=== PATIENT | male | born 1945 | race Caucasian/White ===

== ENCOUNTER → 2020-07-15 11:07 | Outpatient (CLI) | payer MEDICARE, OTHER, SELFPAY ==
[2020-07-16 14:07] LABS: Fecal Immunochemical Test Positive (Negative)
== END ==
PROVIDERS: PCP Student in an Organized Health Care Education/Training Program; Referring Provider Student in an Organized Health Care Education/Training Program; Visit Provider Student in an Organized Health Care Education/Training Program
DX: Z12.11 Encounter for screening for malignant neoplasm of colon (principal)
CPT/HCPCS: 82274

== ENCOUNTER → 2020-08-26 09:51 | Outpatient (CLI) | payer MEDICARE, OTHER, SELFPAY ==
[2020-08-26 10:58] LABS: COVID19 -Nasal RAPID Negative (Negative)
== END ==
PROVIDERS: PCP Student in an Organized Health Care Education/Training Program; Visit Provider Surgery
DX: Z20.822 Contact with and (suspected) exposure to COVID-19 (principal); Z01.812 Encounter for preprocedural laboratory examination
CPT/HCPCS: 87635; C9803

== ENCOUNTER 2020-08-27 07:18 | Day surgery (SDC) | payer MEDICARE, OTHER, SELFPAY ==
[2020-08-26 09:40] VITALS: BP 129/66; PULSE 67; RESP 12; O2SAT 95
--- NOTE | 2020-08-27 | PATH_ITS ---
[facility] Accession Number: [id number] . 01 Material submitted: . PART A: duodenum - DUODENUM BIOPSY PART B: gastrointestinal site - STOMACH BIOPSY PART C: esophagus - DISTAL ESOPHAGUS PART D: cecum - BIOPSY OF LARGE CECAL POLYP PART E: body - POLYP AT 70 CM PART F: body - POLYP AT 50 CM PART G: body - POLYP AT 25 CM PART H: body - POLYP AT 15 CM . 02 Diagnosis: A. Duodenum, Biopsy: Duodenal mucosa with no diagnostic abnormality. Negative for active inflammation, features of sprue, dysplasia, or malignancy. . B. Stomach, Biopsy: Antral mucosa with no diagnostic abnormality. Negative for Helicobacter by immunohistochemistry. Negative for intestinal metaplasia. Negative for dysplasia and malignancy. . C. Distal Esophagus, Biopsy: Squamous mucosa with no diagnostic abnormality. Intraepithelial eosinophils are not increased. Negative for dysplasia and malignancy. . D. Cecum, Large Polyp, Biopsy: Tubular adenoma. . E. Colon, Polyp at 70 cm, Biopsy: Tubular adenoma. . F. Colon, Polyp at 50 cm, Biopsy: Tubular adenoma. . G. Colon, Polyp at 25 cm, Biopsy: Tubular adenoma. . H. Colon, Polyp at 15 cm, Biopsy: Tubular adenoma. [facility] 09/03/2020 1508 Local . 02 Electronically signed: . Kimberlyn Henlye MD, Pathologist NPI- [id number] . 01 Gross description: . Part A: DUODENUM BIOPSY: Received in formalin is 1 fragment(s) of verduzco, soft tissue measuring 0.3 x 0.2 x 0.2 cm submitted entirely in 1 cassette(s) Part B: STOMACH BIOPSY: Received in formalin is 1 fragment(s) of verduzco, soft tissue measuring 0.2 x 0.2 x 0.2 cm submitted entirely in 1 cassette(s) Part C: DISTAL ESOPHAGUS: Received in formalin is 1 fragment(s) of verduzco, soft tissue measuring 0.1 x 0.1 x 0.1 cm submitted entirely in 1 cassette(s) Part D: BIOPSY OF LARGE CECAL POLYP: Received in formalin are 3 fragment(s) of verduzco, soft tissue measuring 0.1 x 0.1 x 0.1 cm to 0.3 x 0.3 x 0.3 cm submitted entirely in 1 cassette(s) Part E: POLYP AT 70 CM: Received in formalin are multiple fragment(s) of verduzco, soft tissue measuring 0.1 x 0.1 x 0.1 cm to 0.3 x 0.2 x 0.2 cm submitted entirely in 1 cassette(s) Part F: POLYP AT 50 CM: Received in formalin is 1 fragment(s) of verduzco, soft tissue measuring 0.2 x 0.2 x 0.2 cm submitted entirely in 1 cassette(s) Part G: POLYP AT 25 CM: Received in formalin are 2 fragment(s) of verduzco, soft tissue measuring 0.3 x 0.2 x 0.2 cm to 0.5 x 0.5 x 0.4 cm submitted entirely in 1 cassette(s) Part H: POLYP AT 15 CM: Received in formalin is 1 fragment(s) of verduzco, soft tissue measuring 0.3 x 0.3 x 0.3 cm submitted entirely in 1 cassette(s) /GEOVANNI 08/30/20203 Local . 02 Microscopic: . B. An immunohistochemical stain was performed to evaluate for Helicobacter organisms and is negative. The control stain showed appropriate reactivity. . * This test was developed and its performance characteristics determined by [employer]. It has not been cleared or approved by the U.S. Food and Drug Administration. The FDA has determined that such clearance or approval is not necessary. This test is used for clinical purposes. It should not be regarded as investigational or for research. . 02 Pathologist provided ICD-10: D12.0, D12.6 . 02 CPT . 073075, 526619, 760783, 654992, 537806, 167352, 828545, 969604, [id number] Performed at: 01 [facility] [address] [place] [address] [address], [place], [place] [id number] MD Naveed Reed MD Phone: [phone] Performed at: 02 [facility] [address] [place] [id number] MD Kimberlyn Henley MD Phone: [phone]
[2020-08-27] MEDS: SODIUM CHLORIDE 0.9% 1,000 ML 200 ML IV (07:50)
[2020-08-27 07:57] VITALS: BP 137/86; PULSE 74; RESP 16; TEMP 35.8; O2SAT 97; BMI 29.3
--- NOTE | 2020-08-27 08:20 | P.OP.ENDO_ITS ---
Operative Date/Time/Diagnoses Date of procedure: 08/27/20 Time of procedure: 08:20 Pre-op diagnosis: positive fit test, epigastric pain and bloating, never had colonosopy Post-op diagnosis: other (mild endoscopic duodenitis and gastritis; ) Procedure & Clinicians Study performed: EGD Standard forceps biopsies of duodenum, stomach, distal esophagus Procedural sedation performed by the endoscopist Colonoscopy Cold forceps biopsy of a large cecal polyp Cold forceps polypectomy of multiple polyps at 70 cm Cold forceps polypectomy of multiple polyps at 50 cm Hot snare polypectomy at 25 cm Hot snare polypectomy at 15 cm Same procedure as scheduled: Yes Indications: positive fit test, epigastric pain, never had an EGD or colonoscopy Surgeon: Jazmin Broussard Procedure Notes SCOAP/Timeout: Performed Procedure in detail: The patient was brought to the room and placed in left lateral decubitus position with all bony prominences padded. A bite block was positioned in the patient's mouth to protect the lips, teeth, and tongue for the procedure. A time-out was performed and then the patient was given procedural sedation starting with 4 mg of Versed and 100 mcg of fentanyl. Vitals were monitored throughout the procedure and remained stable. Once adequately sedated, the procedure was begun. The lubricated gastroscope was passed through the bite block and across the tongue and into the esophagus without incident. A tubular view of the esophagus was maintained as the scope was advanced through the esophagus and into the stomach. The scope was advanced through the stomach and to the pylorus. The scope was gently popped through the pylorus and into the duodenal bulb. The scope was flexed and advanced into the second and third portions of the duodenum. The duodenum and duodenal bulb appeared fairly normal with mild endoscopic duodenitis. The scope was withdrawn into the stomach. The stomach appeared fairly normal with mild endoscopic gastritis. The scope was retroflexed and the gastric cardia was examined. The hiatus appeared anil, with no gaping around the scope. The scope was then straightened, and withdrawn into the esophagus. The Z-line appeared normal, at 40 cm, with no mucosal breaks. Crural pinch was at the same level. The distal esophagus appeared normal. Standard forceps biopsy were taken of the duodenum, stomach, distal esophagus The scope was then withdrawn through the esophagus with a tubular view. The scope was then withdrawn from the patient and attention was then turned to the colonoscopy portion of the procedure. A rectal exam was performed revealing no abnormalities. The colonoscope was then introduced to the rectum and advanced to the cecum in the usual fashion. The cecum was identified by the appendiceal orifice, the mucosal tri-fold, and the ileocecal valve. The scope was then retracted while rotating side to side and examining each mucosal fold. There were numerous polyps throughout the colon. There were 2 small flat polyps in the cecum. Just outside the cecum overlying the ileocecal valve was a large 3 cm x 4 cm flat polyp involving the ileocecal valve and to mucosal colonic folds. Biopsies were taken of the large flat polyp. Multiple flat, adenomatous appearing polyps were seen at 70 cm, and were removed with Jumbo forceps. 3 cm x 2 cm in aggregate. Multiple flat, adenomatous appearing polyps were seen at 50 cm and removed with Jumbo forceps. 2 cm x 2 cm in aggregate. A 1 cm pedunculated polyp was seen at 25 cm and removed with hot snare. A 8 mm pedunculated polyp was seen at 15 cm and removed with hot snare. At the conclusion of the procedure retroflexion was performed and small grade 1-2 internal hemorrhoids without stigmata of bleeding were seen. The scope was then withdrawn from the rectum the procedure was concluded. The patient tolerated the procedure well and was transferred to the PACU in stable condition. A total of 10 mg of Versed and 250 mcg of fentanyl used for the entire procedure. Scope withdrawal time: 40 Sedation minutes: 58 Findings: gastritis (Mild) and other findings (Many polyps throughout the colon, a large flat polyp in the cecum overlying the ileocecal valve and to mucosal fold was not removable endoscopically) Specimen(s): other (Biopsies of duodenum, stomach, distal esophagus. Biopsies of large cecal polyp, polypectomy specimens from 70 cm, 50 cm, 25 cm, and 15 cm in the colon) Complications: none Impression: No hiatal hernia, no esophagitis, mild endoscopic duodenitis gastritis. Numerous polyps, 1 very large polyp in the cecum overlying the ileocecal valve and two mucosal folds. Post-procedure Recommendations: Other recommendation (Follow-up in the office next week to discuss pathology results, and need for future endoscopy or surgical int ervention) Follow up: as needed Disposition: PACU
--- NOTE | 2020-08-27 08:20 | PM.PREOP ---
Pre-operative Note COVID-19 COVID-19 status: Negative Result date/Date tested (Pos, Neg/Pending): 08/26/20 Interval Note History & Physical reviewed/Exam performed by Physician: Yes Changes to H&P: No ASA Class (for procedural sedation): II
[2020-08-27] MEDS: LIDOCAINE 4% SOLN 50 ML 20 ML TOP (08:22)
[2020-08-27] MEDS: fentaNYL 250 MCG/5 ML INJ IV (08:46)
[2020-08-27] MEDS: MIDAZOLAM 5 MG/5 ML VIAL IV (08:46)
[2020-08-27 09:35] VITALS: BP 126/71; PULSE 67; RESP 12; TEMP 36.1; O2SAT 96
[2020-08-27 09:46] VITALS: BP 126/79; PULSE 65; RESP 11; O2SAT 95
[2020-08-27 09:54] VITALS: BP 127/80; PULSE 67; RESP 12; O2SAT 95
[2020-08-27 10:11] VITALS: BP 112/81; PULSE 58; RESP 14; TEMP 35.9; O2SAT 94
== END 2020-08-27 10:31 | disposition home or self-care (01) ==
PROVIDERS: PCP Student in an Organized Health Care Education/Training Program; Referring Provider Student in an Organized Health Care Education/Training Program; Visit Provider Surgery
PROC: 0DJ08ZZ Inspection of Upper Intestinal Tract, Via Natural or Artificial Opening Endoscopic (ICD-10-PCS; CPT 43235; principal; 2020-08-27 08:30)
PROC: 0DJD8ZZ Inspection of Lower Intestinal Tract, Via Natural or Artificial Opening Endoscopic (ICD-10-PCS; CPT 45378; 2020-08-27 08:30)
DX: D12.0 Benign neoplasm of cecum (principal); D12.6 Benign neoplasm of colon, unspecified; K29.50 Unspecified chronic gastritis without bleeding; K29.80 Duodenitis without bleeding
CPT/HCPCS: 45385; 45380; 43239; 99152; 99153; J2250; J3010

== ENCOUNTER → 2020-09-01 15:12 | Outpatient (CLI) | payer MEDICARE, OTHER, SELFPAY ==
[2020-09-01 15:59] LABS: Hemoglobin A1C% w Est Avg Glu 5.8 % (4.0-6.0)
[2020-09-05 15:07] LABS: Percent Free Testosterone 2.48 % (1.50-4.20); Testosterone Free 6.81 ng/dL (5.00-21.00); Testosterone Total 274.5 ng/dL (264.0-916.0)
== END ==
PROVIDERS: PCP Student in an Organized Health Care Education/Training Program; Referring Provider Student in an Organized Health Care Education/Training Program; Visit Provider Student in an Organized Health Care Education/Training Program
DX: E29.1 Testicular hypofunction (principal); R73.9 Hyperglycemia, unspecified
CPT/HCPCS: 36415; 83036; 84402; 84403

== ENCOUNTER → 2020-09-17 17:01 | Outpatient (CLI) | payer MEDICARE, OTHER, SELFPAY ==
[2020-09-17 17:39] LABS: Add Manual Diff / Slide Review NO; Basophils Absolute Auto 100 /uL (0-100); Eosinophils Absolute Auto 300 /uL (0-450); Hematocrit 44.6 % (41-53); Hemoglobin 14.8 g/dL (13.5-17.5); Lymphocytes Absolute Auto 1400 /uL (1100-4500); Lymphocytes Percent Auto 19.5 % (25-40); Mean Corpuscular HGB Conc 33.2 % (30-36); Mean Corpuscular Hemoglobin 31.2 PG (26-34); Mean Corpuscular Volume 94.2 fL (80-100); Monocytes Absolute Auto 700 /uL (0-900); Neutrophils Absolute Auto 4700 /uL (1500-7000); Neutrophils Percent Auto 65.5 % (50-75); Platelet Count 231 X10^3/uL (150-400); Red Blood Cell Count 4.74 X10^6/uL (4.5-5.9); Red Cell Distribution Width 14.8 % (11.6-14.8); White Blood Cell Count 7.1 X10^3/uL (4.5-11.0)
[2020-09-17 17:54] LABS: HEMOLYSIS < 15 (0-50)
[2020-09-17 18:01] LABS: Alanine Aminotransferase 23 IU/L (<50); Albumin 4.3 g/dL (3.5-5.0); Albumin Globulin Ratio 1.7 (1.0-2.8); Alkaline Phosphatase 65 U/L (38-126); Aspartate Aminotransferase 31 IU/L (17-59); Bilirubin Total 0.4 mg/dL (0.2-1.3); Blood Urea Nitrogen 15 mg/dL (9-20); Calcium 9.2 mg/dL (8.4-10.2); Carbon Dioxide 33 mmol/L (22-32); Chloride 104 mmol/L (98-107); Creatine Kinase 183 U/L (55-170); Estimated Glomerular Filt Rate > 60.0 mL/min (>60); Globulin 2.5 g/dL (1.7-4.1); Glucose 114 mg/dL (80-110); Potassium 4.1 mmol/L (3.4-5.1); Sodium 139 mmol/L (137-145); Total Protein 6.8 g/dL (6.3-8.2)
[2020-09-17 18:05] LABS: Erythrocyte Sedimentation Rate 3 MM/HR (0-15)
[2020-09-17 18:32] LABS: TSH w/ Reflex to FT4 2.93 uIU/mL (0.47-4.68)
[2020-09-17 18:44] LABS: C-Reactive Protein Quant 0.5 mg/dL (<1.0)
[2020-09-17 19:37] LABS: Vitamin B12 306 pg/mL (239-931)
[2020-09-19 12:22] LABS: CCP Antibodies IgG/IgA 8 units (0-19)
[2020-09-19 17:36] LABS: ANA Screen, IFA Negative (.)
== END ==
PROVIDERS: PCP Student in an Organized Health Care Education/Training Program; Referring Provider Student in an Organized Health Care Education/Training Program; Visit Provider Student in an Organized Health Care Education/Training Program
DX: I48.0 Paroxysmal atrial fibrillation (principal); I40.8 Other acute myocarditis; I10 Essential (primary) hypertension; M35.3 Polymyalgia rheumatica; G62.9 Polyneuropathy, unspecified
CPT/HCPCS: 36415; 80053; 82550; 82607; 84443; 85025; 85651; 86038; 86140; 86200

== ENCOUNTER → 2020-10-04 14:09 | Outpatient (CLI) | payer MEDICARE, OTHER, SELFPAY ==
[2020-10-04 16:52] LABS: COVID19 -Nasal RAPID Negative (Negative)
== END ==
PROVIDERS: PCP Student in an Organized Health Care Education/Training Program; Visit Provider Physician Assistant
DX: Z01.812 Encounter for preprocedural laboratory examination (principal); Z20.822 Contact with and (suspected) exposure to COVID-19
CPT/HCPCS: 87635; C9803

== ENCOUNTER 2020-10-06 12:45 | Day surgery (SDC) | payer MEDICARE, OTHER, SELFPAY ==
--- NOTE | 2020-10-06 | PATH_ITS ---
[facility] Accession Number: [id number] . 01 Material submitted: . ileo-cecal valve - POLYP IC VALVE . 02 Diagnosis: Ileocecal Valve Polyp, Biopsy: Tubulovillous adenoma, fragmented. Negative for high-grade dysplasia or malignancy. [facility] 10/08/2020 0958 Local . 02 Electronically signed: . Lucian Gonsales MD, PhD, Pathologist NPI- [id number] . 01 Gross description: . POLYP IC VALVE: Received in formalin are multiple fragment(s) of verduzco, soft tissue measuring 0.1 x 0.1 x 0.1 cm to 0.9 x 0.7 x 0.6 cm submitted entirely in 1 cassette(s) /GEOVANNI 10/07/2020 193 Local . 02 Pathologist provided ICD-10: D12.0 . 02 CPT . 553523 Performed at: 01 [facility] [address] [facility], [place], [place] [id number] MD Naveed Reed MD Phone: [phone] Performed at: 02 [facility] [address] [place], [place] [id number] MD Kimberlyn Henley MD Phone: [phone]
[2020-10-06 13:17] VITALS: BP 138/94; PULSE 81; RESP 16; TEMP 36.6; O2SAT 97; BMI 29.3
[2020-10-06] MEDS: SODIUM CHLORIDE 0.9% 1,000 ML 100 ML IV (13:28)
--- NOTE | 2020-10-06 14:02 | P.OP.ENDO_ITS ---
Operative Date/Time/Diagnoses Date of procedure: 10/06/20 Pre-op diagnosis: See Procedure & Clinicians Study performed: Colonoscopy Same procedure as scheduled: Yes Indications: Large cecal polyp to be evaluated for possible endoscopic removal Surgeon: Ignacio Morel Procedure Notes Procedure in detail: After informed consent was obtained the patient was placed in left lateral decubitus position. Video colonoscope was introduced the rectum slowly advanced cecum. Preparation was good. On slow withdrawal mucosa was carefully examined. The scope was removed. The patient tolerated procedure well. Blood loss none Complications none Sedation MAC Findings 1. Large, stellate 30 x 40 mm polyp on top of the IC valve. Sequentially, this was injected with a total of 12 cc of saline for left and polyp was removed piecemeal fashion. The remainder of the polyp around the edges was treated with argon plasma distributor cleaner at a setting of 0.8 liters/minute and 30 w. I felt the polyp to be completely treated. 2. Otherwise grossly negative colonoscopy to cecum We will merely await the results of biopsies which I expect to be completely benign though there is a small chance of a small focus of carcinoma hiding there. As routine follow-up we should have repeat colonoscopy in 3 months with APC to clean up any small foci that were not completely treated at the end of the procedure.
[2020-10-06 14:44] VITALS: BP 127/84; PULSE 70; RESP 15; TEMP 36.4; O2SAT 95
[2020-10-06 14:49] VITALS: BP 133/86; PULSE 71; RESP 14; O2SAT 95
[2020-10-06 14:59] VITALS: BP 135/87; PULSE 68; RESP 16; O2SAT 97
[2020-10-06 15:03] VITALS: BP 132/85; PULSE 64; RESP 17; TEMP 36.8; O2SAT 98
== END 2020-10-06 15:53 | disposition home or self-care (01) ==
PROVIDERS: PCP Student in an Organized Health Care Education/Training Program; Referring Provider Internal Medicine Gastroenterology; Visit Provider Internal Medicine Gastroenterology
PROC: 0DJD8ZZ Inspection of Lower Intestinal Tract, Via Natural or Artificial Opening Endoscopic (ICD-10-PCS; CPT 45378; principal; 2020-10-06 14:00)
DX: D12.0 Benign neoplasm of cecum (principal); I48.0 Paroxysmal atrial fibrillation; E78.5 Hyperlipidemia, unspecified
CPT/HCPCS: 45390

== ENCOUNTER → 2020-10-18 13:40 | Outpatient (CLI) | payer MEDICARE, OTHER, SELFPAY ==
--- NOTE | 2020-10-18 13:43 | DI.RAD.S_ITS ---
PROCEDURE: XR CALCANEOUS LT MIN 2V INDICATIONS: heel pain TECHNIQUE: Two views of the calcaneus were acquired. COMPARISON: None. FINDINGS: Bones: No fractures or dislocations. No suspicious bony lesions. Soft tissues: No suspicious calcifications. Achilles tendon appears normal. IMPRESSION: No acute fracture. No osseous lesion. If symptoms and/or clinical suspicion for pathology persist, further assessment with repeat, or advanced imaging (e.g., CT, MRI, or bone scan) may be helpful for further assessment. Dictated by: Dia Fall M.D. on 10/18/2020 at 14:03 Approved by: Dia Fall M.D. on 10/18/2020 at 14:04
== END ==
PROVIDERS: PCP Student in an Organized Health Care Education/Training Program; Referring Provider Physician Assistant; Visit Provider Physician Assistant
DX: M79.672 Pain in left foot (principal)
CPT/HCPCS: 73650

== ENCOUNTER → 2020-10-21 14:50 | Outpatient (CLI) | payer MEDICARE, OTHER, SELFPAY ==
[2020-10-21] MEDS: COVID-19 VACC, Ad26(JANSSEN)/PF 0.5 ML IM (15:04)
== END ==
PROVIDERS: PCP Student in an Organized Health Care Education/Training Program; Visit Provider Internal Medicine
DX: Z23 Encounter for immunization (principal)
CPT/HCPCS: 0031A; 91303

== ENCOUNTER → 2020-11-23 12:40 | Outpatient (CLI) | payer MEDICARE, OTHER, SELFPAY ==
[2020-11-23 14:15] LABS: Hemoglobin A1C% w Est Avg Glu 5.6 % (4.0-6.0)
== END ==
PROVIDERS: PCP Student in an Organized Health Care Education/Training Program; Referring Provider Student in an Organized Health Care Education/Training Program; Visit Provider Student in an Organized Health Care Education/Training Program
DX: R73.03 Prediabetes (principal); M35.3 Polymyalgia rheumatica
CPT/HCPCS: 36415; 83036

== ENCOUNTER → 2021-02-23 09:33 | Outpatient (CLI) | payer MEDICARE, OTHER, SELFPAY ==
[2021-02-23 11:50] LABS: COVID19 -Nasal RAPID Negative (Negative)
== END ==
PROVIDERS: PCP Student in an Organized Health Care Education/Training Program; Referring Provider Physician Assistant; Visit Provider Physician Assistant
DX: Z01.812 Encounter for preprocedural laboratory examination (principal); Z20.822 Contact with and (suspected) exposure to COVID-19
CPT/HCPCS: 87635; C9803

== ENCOUNTER → 2021-06-21 10:25 | Outpatient (CLI) | payer MEDICARE, OTHER, SELFPAY ==
[2021-06-21 12:22] LABS: Hemoglobin A1C% w Est Avg Glu 5.5 % (4.0-6.0)
== END ==
PROVIDERS: PCP Student in an Organized Health Care Education/Training Program; Referring Provider Student in an Organized Health Care Education/Training Program; Visit Provider Student in an Organized Health Care Education/Training Program
DX: R73.9 Hyperglycemia, unspecified (principal); T38.0X5A Adverse effect of glucocorticoids and synthetic analogues, initial encounter
CPT/HCPCS: 36415; 83036

== ENCOUNTER 2022-02-23 06:56 | Emergency (ER) | payer MEDICARE, OTHER, SELFPAY ==
[2022-02-23] VITALS (8 sets, daily range): BP systolic 119–137; BP diastolic 73–79; PULSE 73–102; RESP 20–26; TEMP 36.4; O2SAT 88–94; BMI 31.1
--- NOTE | 2022-02-23 07:37 | DI.RAD.S_ITS ---
PROCEDURE: XR CHEST 2V INDICATIONS: shortness of breath TECHNIQUE: 2 views of the chest were acquired. COMPARISON: None. FINDINGS: Surgical changes and devices: None. Lungs and pleura: Lungs are clear. No pleural effusions or pneumothorax. Mediastinum: Mediastinal contours are normal. Heart size is normal. Bones and chest wall: No suspicious bony abnormalities. Soft tissues appear unremarkable. IMPRESSION: No acute cardiopulmonary abnormality. Dictated by: Ramesh Gayle M.D. on 02/23/2022 at 8:20 Approved by: Ramesh Gayle M.D. on 02/23/2022 at 8:21
[2022-02-23 08:00] LABS: Add Manual Diff / Slide Review NO; Basophils Absolute Auto 0 /uL (0-100); Basophils Percent Auto 0.5 % (0-2); Eosinophils Absolute Auto 0 /uL (0-450); Eosinophils Percent Auto 0.6 % (2-4); Hematocrit 44.1 % (41-53); Hemoglobin 14.9 g/dL (13.5-17.5); Lymphocytes Absolute Auto 500 /uL (1100-4500); Lymphocytes Percent Auto 7.6 % (25-40); Mean Corpuscular HGB Conc 33.8 % (30-36); Mean Corpuscular Hemoglobin 31.5 PG (26-34); Mean Corpuscular Volume 93.1 fL (80-100); Monocytes Absolute Auto 800 /uL (0-900); Monocytes Percent Auto 11.3 % (3-14); Neutrophils Absolute Auto 5300 /uL (1500-7000); Platelet Count 131 X10^3/uL (150-400); Red Blood Cell Count 4.74 X10^6/uL (4.5-5.9); Red Cell Distribution Width 14.9 % (11.6-14.8); White Blood Cell Count 6.7 X10^3/uL (4.5-11.0)
[2022-02-23 08:12] LABS: Lactate (Lactic Acid) 1.2 mmol/L (0.7-2.1)
[2022-02-23 08:13] LABS: Alanine Aminotransferase 27 IU/L (<50); Albumin 4.3 g/dL (3.5-5.0); Albumin Globulin Ratio 1.5 (1.0-2.8); Alkaline Phosphatase 62 U/L (38-126); Aspartate Aminotransferase 34 IU/L (17-59); BUN Creatinine Ratio 12.2 (6-22); Bilirubin Total 0.5 mg/dL (0.2-1.3); Blood Urea Nitrogen 12 mg/dL (9-20); Calcium 8.5 mg/dL (8.4-10.2); Carbon Dioxide 27 mmol/L (22-32); Chloride 101 mmol/L (98-107); Estimated Glomerular Filt Rate > 60 mL/min (>60); Globulin 2.8 g/dL (1.7-4.1); Glucose 125 mg/dL (80-110); HEMOLYSIS < 15 (0-50); Potassium 3.8 mmol/L (3.4-5.1); Sodium 136 mmol/L (137-145); Total Protein 7.1 g/dL (6.3-8.2)
--- NOTE | 2022-02-23 08:42 | ED_ITS ---
HPI - SOB/Dyspnea General Chief Complaint: Shortness of Breath/Dyspnea Stated Complaint: COVID + LOTS OF FLEM, SWOLLEN THROAT, BACK PAIN Time Seen by Provider: 02/23/22 07:10 Source: patient Mode of arrival: Ambulatory Limitations: no limitations History of Present Illness HPI Narrative: 76-year-old male former smoker with history of hypertension and hyperlipidemia presents with various upper respiratory symptoms including nasal congestion, phlegm production sore throat and fatigue for about the past 3-4 days. He denies any fever or chills nor GI symptoms such as nausea, vomiting or diarrhea. Denies any significant shortness of breath but does state he feels a bit fatigued when he walks. He denies shortness of breath when lying flat, denies any weight gain or lower extremity pain, swelling redness Related Data Home Medications Medication Instructions Recorded Confirmed cholecalciferol (vitamin D3) 10 10 mcg PO DAILY 07/30/20 01/06/21 mcg (400 unit) capsule aspirin 81 mg tablet,delayed 81 mg PO DAILY 01/06/21 01/06/21 release Previous Rx's Medication Instructions Recorded propafenone 150 mg tablet 150 mg PO TID #270 tabs 09/16/20 metoprolol succinate 25 mg 25 mg PO DAILY #90 tabs 12/26/21 tablet,extended release 24 hr testosterone 50 mg/5 gram (1 %) 100 mg transdermal DAILY #300 grams 12/26/21 transdermal gel rosuvastatin 5 mg tablet (Crestor) 5 mg PO DAILY #90 tabs 01/16/22 Allergies Allergy/AdvReac Type Severity Reaction Status Date / Time No Known Drug Allergies Allergy Verified 01/16/22 10:42 Review of Systems Review of Systems Narrative: GENERAL: See HPI. HEENT: See HPI RESPIRATORY: See HPI CARDIOVASCULAR: See HPI GASTROINTESTINAL: Denies nausea, vomiting, abdominal pain, diarrhea, constipation, melena. : Denies dysuria, frequency, incontinence, hematuria, urinary retention. MUSCULOSKELETAL: denies weakness, joint pain, or bony pain SKIN: Denies rash, skin lesions, or other NEUROLOGIC: Denies weakness, headache, numbness, change in speech, confusion, seizures, incoordination. PSYCHIATRIC: No concerning psychosocial issues. 12 point review of systems is negative except for those stated above Patient History Medical History Carpal tunnel syndrome Chicken pox Colon polyps Fall from ladder GI bleed Kidney stones Osteoarthritis Polymyalgia rheumatica Presbycusis, right ear Surgical History Anesthesia History of toe surgery History of total right knee replacement (~2011) Rectal abscess Family History Mother Hypertension Breast cancer Uterine cancer Social History marital status: household members: spouse occupational status: previously employed Smoking Status: Former smoker alcohol intake: current substance use type: does not use Smoking Status: Former smoker alcohol intake frequency: 0-2 drinks per day Substance Use Type: does not use Exam Narrative Exam Narrative: GENERAL: [76] year old patient appears stated age. Well-developed patient, in mild distress. HEAD: Atraumatic. Normocephalic. EYES: Pupils equal round and reactive. Extraocular motions intact. No scleral icterus. No injection or drainage. ENT: Nose without bleeding, purulent drainage. Throat with minimal erythema, no significant swelling or exudate, airway patent, clear postnasal drip NECK: Trachea midline. Non tender CARDIOVASCULAR: Regular rate and rhythm without murmurs, gallops, or rubs. RESPIRATORY: Clear to auscultation. Breath sounds equal bilaterally. No wheezes, rales, or rhonchi. No significant work of breathing, use of accessory muscles or hypoxemia GASTROINTESTINAL: Abdomen soft, non-tender, nondistended. EXTREMITIES: No edema or joint tenderness. BACK: Nontender without deformity or crepitance. No flank tenderness. NEURO: AOx3. SKIN: No rash or erythema of visible areas Initial Vital Signs Initial Vital Signs: Vital Signs Temperature 97.5 F L 02/23/22 07:28 Pulse Rate 76 02/23/22 07:28 Respiratory Rate 20 02/23/22 07:28 Blood Pressure 120/77 02/23/22 07:28 Pulse Oximetry 90 L 02/23/22 07:28 Oxygen Delivery Method 02/23/22 07:28 Course Orders Ordered: ED Orders 02/23/22 07:37 XR chest 2V Stat EKG-12 Lead Stat Measure peak expiratory flow ONCE RT Consult Eval and Treat Now 02/23/22 07:56 Complete Blood Count AUTO DIFF Stat Comprehensive Metabolic Panel Stat Lactate (Lactic Acid) Stat 02/23/22 09:07 BNP [NT-proBNP (BNP-Adult 18+)] Stat 02/23/22 10:14 Throat Culture Stat Vital Signs Vital signs: Vital Signs - 8 hr 02/23/22 07:28 02/23/22 08:37 02/23/22 08:38 Temperature 97.5 F L Pulse Rate 76 73 73 Respiratory Rate 20 Blood Pressure 120/77 Pulse Oximetry 90 L 88 L 91 Oxygen Delivery Method Room Air 02/23/22 08:38 02/23/22 09:00 02/23/22 09:01 Temperature Pulse Rate 102 H 74 Respiratory Rate 26 H 22 Blood Pressure 133/79 Pulse Oximetry 93 93 Oxygen Delivery Method 02/23/22 09:01 02/23/22 09:30 02/23/22 09:30 Temperature Pulse Rate 75 Respiratory Rate 21 Blood Pressure 119/75 130/73 Pulse Oximetry 91 Oxygen Delivery Method 02/23/22 10:00 02/23/22 10:00 Temperature Pulse Rate 75 Respiratory Rate 24 Blood Pressure 137/76 Pulse Oximetry 94 Oxygen Delivery Method MDM - SOB/Dyspnea Lab Data Result diagrams: 02/23/22 07:56 02/23/22 07:56 Labs: Lab Results 02/23/22 02/23/22 02/23/22 Range/Units 07:56 07:56 07:56 WBC 6.7 (4.5-11.0) X10^3/uL RBC 4.74 (4.5-5.9) X10^6/uL Hgb 14.9 (13.5-17.5) g/dL Hct 44.1 (41-53) % MCV 93.1 (80-100) fL MCH 31.5 (26-34) PG MCHC 33.8 (30-36) % RDW 14.9 H (11.6-14.8) % Plt Count 131 L (150-400) X10^3/uL Neut % (Auto) 80.0 H (50-75) % Lymph % (Auto) 7.6 L (25-40) % [place] % (Auto) 11.3 (3-14) % Eos % (Auto) 0.6 L (2-4) % Baso % (Auto) 0.5 (0-2) % Neut # (Auto) 5300 (5934-6083) /uL Lymph # (Auto) 500 L (4636-1762) /uL [place] # (Auto) 800 (0-900) /uL Eos # (Auto) 0 (0-450) /uL Baso # (Auto) 0 (0-100) /uL Sodium 136 L (137-145) mmol/L Potassium 3.8 (3.4-5.1) mmol/L Chloride 101 (98-107) mmol/L Carbon Dioxide 27 (22-32) mmol/L BUN 12 (9-20) mg/dL Creatinine 0.98 (0.66-1.25) mg/dL Estimated GFR > 60 (>60) mL/min BUN/Creatinine Ratio 12.2 (6-22) Glucose 125 H (80-110) mg/dL Lactate 1.2 (0.7-2.1) mmol/L Calcium 8.5 (8.4-10.2) mg/dL Total Bilirubin 0.5 (0.2-1.3) mg/dL AST 34 (17-59) IU/L ALT 27 (<50) IU/L Alkaline Phosphatase 62 (38-126) U/L NT-Pro-B Natriuret Pep (<450) pg/mL Total Protein 7.1 (6.3-8.2) g/dL Albumin 4.3 (3.5-5.0) g/dL Globulin 2.8 (1.7-4.1) g/dL Albumin/Globulin Ratio 1.5 (1.0-2.8) 02/23/22 Range/Units 09:07 WBC (4.5-11.0) X10^3/uL RBC (4.5-5.9) X10^6/uL Hgb (13.5-17.5) g/dL Hct (41-53) % MCV (80-100) fL MCH (26-34) PG MCHC (30-36) % RDW (11.6-14.8) % Plt Count (150-400) X10^3/uL Neut % (Auto) (50-75) % Lymph % (Auto) (25-40) % [place] % (Auto) (3-14) % Eos % (Auto) (2-4) % Baso % (Auto) (0-2) % Neut # (Auto) (0026-1992) /uL Lymph # (Auto) (3279-9676) /uL [place] # (Auto) (0-900) /uL Eos # (Auto) (0-450) /uL Baso # (Auto) (0-100) /uL Sodium (137-145) mmol/L Potassium (3.4-5.1) mmol/L Chloride (98-107) mmol/L Carbon Dioxide (22-32) mmol/L BUN (9-20) mg/dL Creatinine (0.66-1.25) mg/dL Estimated GFR (>60) mL/min BUN/Creatinine Ratio (6-22) Glucose (80-110) mg/dL Lactate (0.7-2.1) mmol/L Calcium (8.4-10.2) mg/dL Total Bilirubin (0.2-1.3) mg/dL AST (17-59) IU/L ALT (<50) IU/L Alkaline Phosphatase (38-126) U/L NT-Pro-B Natriuret Pep 196 (<450) pg/mL Total Protein (6.3-8.2) g/dL Albumin (3.5-5.0) g/dL Globulin (1.7-4.1) g/dL Albumin/Globulin Ratio (1.0-2.8) Point of Care Testing Rapid Strep A Negative Imaging Data Chest x-ray: Radiologist's Impression: [address] [address] XRay Report Signed Patient: Yogi Perdue MR#: [id number] : 1945 Acct:[id number] Age/Sex: 76 / M Date of Service: 02/23/22 Loc: ED Accession Number: [id number] ?? Procedure: XR chest 2V Ordering Provider: Shashi Zamora D.O. PROCEDURE:? XR CHEST 2V ? INDICATIONS:? shortness of breath ? TECHNIQUE:? 2 views of the chest were acquired.? ? COMPARISON:? None. ? FINDINGS:? ? Surgical changes and devices:? None.? ? Lungs and pleura:? Lungs are clear.? No pleural effusions or pneumothorax.? ? Mediastinum:? Mediastinal contours are normal.? Heart size is normal.? ? Bones and chest wall:? No suspicious bony abnormalities.? Soft tissues appear unremarkable.? ? IMPRESSION:? No acute cardiopulmonary abnormality. ? ? ? Dictated by: Ramesh Gayle M.D. on 02/23/2022 at 8:20 ? ? Approved by: Ramesh Gayle M.D. on 02/23/2022 at 8:21 ? MDM Narrative Medical decision making narrative: Patient has mild symptoms, no signs of sepsis, clear chest x-ray and no significant work of breathing, need for supplemental oxygen, use of accessory muscles or hypoxemia. His renal function is appropriate, stands the chance to worsen clinically and would like a prescription for Paxil COVID. His medicat ions have been reviewed and his ongoing use of propafenone would make packs COVID an unreasonable choice. Patient has no indication for admission for transfer, there is no evidence of any other, alternative diagnosis that would respond to a specific treatment. Return precautions given and questions answered to his apparent satisfaction Discharge Plan Departure Patient Disposition: Home Clinical Impression: COVID-19 Instructions: DI for COVID-19 (Suspected or Confirmed ) Activity Restrictions/Additional Instructions: *You have been diagnosed with [ COVID-19] *What to do: ?* per recommendations from the CDC and the [facility] Department of Health ?* stay home except to get medical care. ?Restrict activities outside your home, except for getting medical care. ?Do not go to work, school, or public areas. ?Avoid using public transportation, ride sharing, or taxis. ?* separate yourself from other people in your home. ?* call ahead before visiting your doctor ?* Wear a facemask ?* Cover your coughs and sneezes ?* Clean your hands often ?* Avoid sharing household items ?* Clean all high-touch services every day ?* Monitor your symptoms and seek prompt medical attention if your illness is worsening, particularly with difficulty in breathing. You may discontinue your isolation when: ?1. You have been fever-free for at least 24 hours without the use of fever reducing medication, AND ?2. Your symptoms are getting better, AND ?3. At least 5 days have passed since symptoms first appeared ?4. If you have fever, continue to stay home until fever resolves Individuals with laboratory confirmed COVID-19 who have not had any symptoms may discontinue home isolation when at least 5 days have passed since the date of their first COVID-19 diagnostic test and have had no subsequent illness You should notifiy any friends and family that have been in close contact *If up to date on COVID Vaccines, then they do not need to quarantine unless symptoms develop. Get tested on day 5 (or sooner if symptoms develop). Take precautions and watch for symptoms until day 10 *If NOT up to date on COVID Vaccines, then CDC recommends quarantine for at least 5 full days. Wear a well fitted mask at home if you must be around others. If they ?develop symptoms they should get tested. If they remain asymptomatic they should get tested on day 5. They should take precautions and monitor for symptoms until day 10. Prescriptions: No Action propafenone 150 mg tablet 150 mg PO TID Qty: 270 2RF Rx Instructions: space evenly during waking hours metoprolol succinate 25 mg tablet extended release 24 hr 25 mg PO DAILY Qty: 90 0RF Rx Instructions: PT DUE FOR APPT W/PCP PRIOR TO END OF RX/FUTURE FILLS. PLEASE CALL TO SCHEDULE APPT. THANKS 12/26/21 testosterone 50 mg/5 gram (1 %) gel 100 mg transdermal DAILY Qty: 300 0RF aspirin 81 mg tablet,delayed release (DR/EC) 81 mg PO DAILY rosuvastatin [Crestor] 5 mg tablet 5 mg PO DAILY Qty: 90 3RF cholecalciferol (vitamin D3) 10 mcg (400 unit) capsule 10 mcg PO DAILY Referrals: Tye Swartz MD [Primary Care Provider] -
[2022-02-23 09:37] LABS: NT-proBNP (BNP-Adult 18+) 196 pg/mL (<450)
== END 2022-02-23 11:00 | disposition home or self-care (01) ==
PROVIDERS: Emergency Provider Emergency Medicine; PCP Student in an Organized Health Care Education/Training Program
DX: U07.1 COVID-19 (principal); R06.02 Shortness of breath
CPT/HCPCS: 36415; 71046; 80053; 83605; 83880; 85025; 87070; 87880; 93005; 93010; 99284

== ENCOUNTER → 2022-06-30 09:36 | Outpatient (CLI) | payer MEDICARE, OTHER, SELFPAY ==
[2022-06-30 10:59] LABS: Hemoglobin A1C% w Est Avg Glu 5.8 % (4.0-6.0)
[2022-06-30 11:32] LABS: BUN Creatinine Ratio 20.4 (6-22); Blood Urea Nitrogen 20 mg/dL (9-20); Calcium 9.4 mg/dL (8.4-10.2); Carbon Dioxide 29 mmol/L (22-32); Chloride 103 mmol/L (98-107); Cholesterol 162 mg/dL (140-199); Estimated Glomerular Filt Rate > 60 mL/min (>60); Glucose 111 mg/dL (80-110); HDL Cholesterol 61 mg/dL (40-60); HEMOLYSIS < 15 (0-50); LDL Cholesterol Calculated 85 mg/dL (<100); Potassium 4.4 mmol/L (3.4-5.1); Sodium 141 mmol/L (137-145); Triglycerides 80 mg/dL (35-150)
[2022-06-30 11:57] LABS: Testosterone 309 ng/dL (71.8-623)
[2022-06-30 15:09] LABS: Creatinine Urine Random 166.2 mg/dL
[2022-06-30 15:14] LABS: Microalbumi Creatinin Ratio Ur 13.2 ug/mg CR (<30); Microalbumin Urine Random 2.2 mg/dL (0-1.6)
== END ==
PROVIDERS: PCP Student in an Organized Health Care Education/Training Program; Referring Provider Student in an Organized Health Care Education/Training Program; Visit Provider Student in an Organized Health Care Education/Training Program
DX: R73.03 Prediabetes (principal); E78.2 Mixed hyperlipidemia; E29.1 Testicular hypofunction
CPT/HCPCS: 36415; 80048; 80061; 82043; 82570; 83036; 84403

== ENCOUNTER → 2023-06-15 08:51 | Outpatient (CLI) | payer MEDICARE, OTHER, SELFPAY ==
[2023-06-22 20:35] LABS: Percent Free Testosterone 2.62 % (1.50-4.20); Testosterone Free 12.77 ng/dL (5.00-21.00); Testosterone Total 487.3 ng/dL (264.0-916.0)
== END ==
PROVIDERS: PCP Family Medicine; Referring Provider Family Medicine; Visit Provider Family Medicine
DX: E29.1 Testicular hypofunction (principal)
CPT/HCPCS: 36415; 84402; 84403

== ENCOUNTER 2023-10-25 15:17 | Emergency (ER) | payer MEDICARE, OTHER, SELFPAY ==
[2023-10-25 15:33] VITALS: BP 137/68; PULSE 66; RESP 17; TEMP 36.6; O2SAT 97; BMI 30.2
--- NOTE | 2023-10-25 15:35 | DI.RAD.S_ITS ---
PROCEDURE: XR KNEE LT 3V INDICATIONS: swelling after fall TECHNIQUE: 3 views of the knee were acquired. COMPARISON: None. FINDINGS: Bones: No fractures or dislocations. No suspicious bony lesions. Well-aligned, intact arthroplasty without hardware complication. Well corticated dystrophic calcification above the patella, likely within the quadriceps tendon. Soft tissues: Moderate joint effusion. No suspicious soft tissue calcifications. IMPRESSION: Moderate knee joint effusion, without displaced fracture. Dictated by: Uriel Gautam M.D. on 10/25/2023 at 16:30 Approved by: Uriel Gautam M.D. on 10/25/2023 at 16:31
--- NOTE | 2023-10-25 15:35 | ED.LOWEXIN ---
HPI - Extremity Injury (Lower) General Chief Complaint: Extremity Injury, Lower Stated Complaint: knee pain, post knee sx Time Seen by Provider: 10/25/23 15:28 Source: patient Mode of arrival: Wheelchair History of Present Illness HPI Narrative: 78-year-old male. Underwent a left total knee replacement in March of last year. Things have been going well. Today he states he fell and landed directly on the left knee and had swelling to the outside of the knee very quickly afterwards. He was concerned about a patella dislocation. No other injuries from the event. Related Data Home Medications Medication Instructions Recorded Confirmed cholecalciferol (vitamin D3) 10 10 mcg PO DAILY 07/30/20 06/15/23 mcg (400 unit) capsule aspirin 81 mg tablet,delayed 81 mg PO DAILY 01/06/21 10/25/23 release Previous Rx's Medication Instructions Recorded rosuvastatin 5 mg tablet (Crestor) 5 mg PO DAILY #90 tabs 03/29/23 propafenone 150 mg tablet 150 mg PO Q8H #180 tabs 07/31/23 metoprolol succinate 25 mg 25 mg PO DAILY #90 tabs 09/05/23 tablet,extended release 24 hr testosterone 1 % (50 mg/5 gram) 2 packet topical DAILY #300 grams 09/27/23 transdermal gel packet Allergies Allergy/AdvReac Type Severity Reaction Status Date / Time No Known Drug Allergies Allergy Verified 10/25/23 15:35 Review of Systems Constitutional Constitutional: Reports system reviewed and no additional complaints, except as documented Musculoskeletal Musculoskeletal: Reports system reviewed and no additional complaints, except as documented Integumentary/Breasts Skin/Breast: Reports system reviewed and no additional complaints, except as documented Neurologic Neurologic: Reports system reviewed and no additional complaints, except as documented Hematologic/Lymphatic On Anticoagulants: No Patient History Medical History Chronic pain of left knee Presbycusis, right ear Fall from ladder Colon polyps GI bleed Osteoarthritis Polymyalgia rheumatica Carpal tunnel syndrome Chicken pox Kidney stones Surgical History Anesthesia Rectal abscess History of toe surgery History of total right knee replacement (~2011) Family History Mother Hypertension Breast cancer Uterine cancer Social History marital status: household members: spouse occupational status: previously employed Smoking Status: Former smoker alcohol intake: current substance use type: does not use Smoking Status: Former smoker alcohol intake frequency: 0-2 drinks per day Substance Use Type: does not use Exam Initial Vital Signs Initial Vital Signs: Vital Signs Temperature 97.8 F 10/25/23 15:33 Pulse Rate 66 10/25/23 15:33 Respiratory Rate 17 10/25/23 15:33 Blood Pressure 137/68 10/25/23 15:33 Pulse Oximetry 97 10/25/23 15:33 Oxygen Delivery Method Room Air 10/25/23 15:33 Const General: cooperative and healthy appearing Resp Effort & Inspection: normal respiratory effort Cardio Rate: regular rate Skin General: no rashes or lesions noted Other: Surgical incision on anterior knee appears well. Extrem Other: Patient does have swelling to the left knee. He was able to do a straight leg raise. Is able to bend his knee. Course Orders Ordered: ED Orders 10/25/23 15:35 XR knee LT 3V Stat Vital Signs Vital signs: Vital Signs - 8 hr 10/25/23 15:33 Temperature 97.8 F Pulse Rate 66 Respiratory Rate 17 Blood Pressure 137/68 Pulse Oximetry 97 Oxygen Delivery Method Room Air MDM - Extremity Injury (Lower) Imaging Data Extremity x-ray #1: Radiologist's Impression: PROCEDURE: XR KNEE LT 3V INDICATIONS: swelling after fall TECHNIQUE: 3 views of the knee were acquired. COMPARISON: None. FINDINGS: Bones: No fractures or dislocations. No suspicious bony lesions. Well-aligned, intact arthroplasty without hardware complication. Well corticated dystrophic calcification above the patella, likely within the quadriceps tendon. Soft tissues: Moderate joint effusion. No suspicious soft tissue calcifications. IMPRESSION: Moderate knee joint effusion, without displaced fracture. MDM Narrative Medical decision making narrative: Neurovascularly intact. X-ray shows no signs of fracture or dislocation. He has no breaks in the skin. Does have an effusion of the left knee. I suspect this is a hematoma. Do not recommend arthrocentesis secondary to concern for infection. Discussed all this with the patient. He was given return precautions. He expressed understanding and agreement. Discharge Plan Departure Patient Disposition: Home Clinical Impression: Effusion of left knee Instructions: How To Perform RICE (Rest, Ice, Compress, Elevate) Activity Restrictions/Additional Instructions: There were no fractures or dislocations noted on the x-rays you can walk on your leg as tolerated. I do recommend that you use ice. Continue all of your medications as directed. Return to the emergency department for new or worsening symptoms. Prescriptions: No Action rosuvastatin [Crestor] 5 mg tablet 5 mg PO DAILY Qty: 90 3RF propafenone 150 mg tablet 150 mg PO Q8H Qty: 180 3RF metoprolol succinate 25 mg tablet extended release 24 hr 25 mg PO DAILY Qty: 90 2RF testosterone 1 % (50 mg/5 gram) gel in packet 2 packet topical DAILY Qty: 300 0RF aspirin 81 mg tablet,delayed release (DR/EC) 81 mg PO DAILY cholecalciferol (vitamin D3) 10 mcg (400 unit) capsule 10 mcg PO DAILY Referrals: Amber Cruz DO [Primary Care Provider] - Stand Alone Forms: Patient Portal/API
== END 2023-10-25 17:41 | disposition home or self-care (01) ==
PROVIDERS: Emergency Provider Emergency Medicine; PCP Family Medicine
DX: M25.462 Effusion, left knee (principal); Z96.652 Presence of left artificial knee joint
CPT/HCPCS: 73562; 99281; 99283

== ENCOUNTER → 2024-05-29 09:09 | Outpatient (CLI) | payer MEDICARE, OTHER, SELFPAY ==
[2024-05-29 10:09] LABS: Add Manual Diff / Slide Review NO; Basophils Absolute Auto 100 /uL (0-100); Basophils Percent Auto 0.8 % (0-2); Eosinophils Absolute Auto 300 /uL (0-450); Eosinophils Percent Auto 4.1 % (2-4); Hematocrit 45.4 % (41-53); Hemoglobin 15.5 g/dL (13.5-17.5); Lymphocytes Absolute Auto 1100 /uL (1100-4500); Lymphocytes Percent Auto 14.7 % (25-40); Mean Corpuscular HGB Conc 34.1 % (30-36); Mean Corpuscular Hemoglobin 32.7 PG (26-34); Mean Corpuscular Volume 95.7 fL (80-100); Monocytes Absolute Auto 700 /uL (0-900); Monocytes Percent Auto 10.2 % (3-14); Neutrophils Absolute Auto 5100 /uL (1500-7000); Neutrophils Percent Auto 70.2 % (50-75); Platelet Count 180 X10^3/uL (150-400); Red Blood Cell Count 4.75 X10^6/uL (4.5-5.9); Red Cell Distribution Width 15.1 % (11.6-14.8); White Blood Cell Count 7.3 X10^3/uL (4.5-11.0)
[2024-05-29 10:34] LABS: Alanine Aminotransferase 22 IU/L (<50); Albumin Globulin Ratio 1.6 (1.0-2.8); Alkaline Phosphatase 56 U/L (38-126); Aspartate Aminotransferase 31 IU/L (17-59); BUN Creatinine Ratio 17.1 (6-22); Bilirubin Total 0.9 mg/dL (0.2-1.3); Blood Urea Nitrogen 21 mg/dL (9-20); Calcium 9.2 mg/dL (8.4-10.2); Carbon Dioxide 27 mmol/L (22-32); Chloride 102 mmol/L (98-107); Cholesterol 155 mg/dL (140-199); Estimated Glomerular Filt Rate > 60 mL/min (>60); Globulin 2.5 g/dL (1.7-4.1); Glucose 114 mg/dL (80-110); HDL Cholesterol 63 mg/dL (40-60); HEMOLYSIS < 15 (0-50); LDL Cholesterol Calculated 70 mg/dL (<100); Potassium 4.9 mmol/L (3.4-5.1); Sodium 136 mmol/L (137-145); Total Protein 6.5 g/dL (6.3-8.2); Triglycerides 111 mg/dL (35-150)
== END ==
PROVIDERS: PCP Family Medicine; Referring Provider Family Medicine; Visit Provider Family Medicine
DX: Z00.00 Encounter for general adult medical examination without abnormal findings (principal); E78.2 Mixed hyperlipidemia; M35.3 Polymyalgia rheumatica; I48.0 Paroxysmal atrial fibrillation
CPT/HCPCS: 36415; 80053; 80061; 85025

== ENCOUNTER → 2025-01-26 14:14 | Outpatient (CLI) | payer MEDICARE, OTHER, SELFPAY ==
[2025-01-26 15:07] LABS: Add Manual Diff / Slide Review NO; Basophils Absolute Auto 100 /uL (0-100); Basophils Percent Auto 0.9 % (0-2); Eosinophils Absolute Auto 200 /uL (0-450); Eosinophils Percent Auto 3.7 % (2-4); Hematocrit 44.1 % (41-53); Hemoglobin 14.7 g/dL (13.5-17.5); Lymphocytes Absolute Auto 1000 /uL (1100-4500); Lymphocytes Percent Auto 14.9 % (25-40); Mean Corpuscular HGB Conc 33.3 % (30-36); Mean Corpuscular Hemoglobin 32.8 PG (26-34); Mean Corpuscular Volume 98.4 fL (80-100); Monocytes Absolute Auto 600 /uL (0-900); Monocytes Percent Auto 9.8 % (3-14); Neutrophils Absolute Auto 4600 /uL (1500-7000); Neutrophils Percent Auto 70.7 % (50-75); Platelet Count 199 X10^3/uL (150-400); Red Blood Cell Count 4.48 X10^6/uL (4.5-5.9); Red Cell Distribution Width 14.6 % (11.6-14.8); White Blood Cell Count 6.5 X10^3/uL (4.5-11.0)
[2025-01-26 15:28] LABS: Alanine Aminotransferase 23 IU/L (<50); Albumin 4.5 g/dL (3.5-5.0); Albumin Globulin Ratio 1.7 (1.0-2.8); Alkaline Phosphatase 54 U/L (38-126); Aspartate Aminotransferase 38 IU/L (17-59); BUN Creatinine Ratio 19.7 (6-22); Bilirubin Total 0.8 mg/dL (0.2-1.3); Blood Urea Nitrogen 23 mg/dL (9-20); C-Reactive Protein Quant < 0.5 mg/dL (<1.0); Calcium 9.2 mg/dL (8.4-10.2); Carbon Dioxide 26 mmol/L (22-32); Chloride 105 mmol/L (98-107); Estimated Glomerular Filt Rate > 60 mL/min (>60); Globulin 2.6 g/dL (1.7-4.1); Glucose 113 mg/dL (70-99); HEMOLYSIS 18 (0-50); Potassium 4.8 mmol/L (3.4-5.1); Sodium 140 mmol/L (137-145); Total Protein 7.1 g/dL (6.3-8.2)
[2025-01-26 15:53] LABS: Erythrocyte Sedimentation Rate 2 MM/HR (0-15)
[2025-01-26 15:56] LABS: TSH w/ Reflex to FT4 3.87 uIU/mL (0.47-4.68)
== END ==
PROVIDERS: PCP Family Medicine; Referring Provider Physician Assistant; Visit Provider Physician Assistant
DX: M35.3 Polymyalgia rheumatica (principal); R42 Dizziness and giddiness; R55 Syncope and collapse
CPT/HCPCS: 36415; 80053; 84443; 85025; 85651; 86140

== ENCOUNTER 2025-03-03 10:45 | Outpatient (RCR) | payer MEDICARE, OTHER, SELFPAY ==
--- NOTE | 2025-02-20 14:18 | PT.OIE ---
Current Diagnoses Benign paroxysmal vertigo, bilateral (02/20/25) History of falling (02/20/25) Past Medical History (Last Reviewed 10/25/23 @ 15:38 by Misael Ramos DO) Carpal tunnel syndrome Chicken pox Chronic pain of left knee Colon polyps Fall from ladder GI bleed Kidney stones Osteoarthritis Polymyalgia rheumatica Presbycusis, right ear Past Surgical History (Last Reviewed 02/23/22 @ 09:43 by Shashi Zamora DO) Anesthesia History of toe surgery History of total right knee replacement (~2011) Rectal abscess Visit Care Team Role Provider Type Amber Cruz DO Family Provider Physician Primary Care Provider Specialty: Family Practice Address: [address] [place] [address], [address], [place], [address] Email: [email or web address] Hue Gomes PA-C Attending Provider [employer] Advocate Referring Provider Specialty: Medical Wound Care Address: [address] [place] [address], [address] Email: [email or web address] Physical Therapy Initial Evaluation PT-OP-A Visit Information Start: 02/20/25 13:59 Freq: Status: Active Protocol: Document 02/20/25 09:00 DCW (Rec: 02/20/25 14:18 DCW [id number]) Out-Patient Physical Therapy Visit Information Visit Information Visit Type Initial Evaluation Visit Start Time 09:00 Visit Stop Time 09:45 Visit Number 1 Number of MINING PLANT OPERATOR Visits 0 Evaluation Information Evaluation Date 02/20/25 PT-OP-B Current Condition Start: 02/20/25 13:59 Freq: Status: Active Protocol: Document 02/20/25 09:00 DCW (Rec: 02/20/25 14:18 DCW [id number]) Current Condition History of Current Condition Onset Date 6 weeks s/p fall Current Complaints Lightheadedness, dizziness with positional changes History of Current Pt is a 79 year old male presenting with a long- Condition standing history of occasional lightheadedness when first standing up. HE notes he has a habit of standing up and then just waiting for ~1 minute in order to make sure he is not going to get symptomatic. Admits it sounds like orthostasis, but has tested himself multiple times and never has noticed a decrease in BP. Approximately six weeks ago, he had another episode of this, and actually ended up falling and hitting his head, denies LOC. Reports that ~one week afterward, he began to experience when he would consider more of a sensation of vertigo, usually with positional changes. Reports he had a follow-up with his PCP, reports she thinks she saw some nystagmus, had him performing self -Livier maneuvers and pt has been taking Meclizine, both of which seem to have been helping. Denies HTN of high cholesterol, denies any head injury prior to recent fall. PT-OP-C Subjective Start: 02/20/25 13:59 Freq: Status: Active Protocol: Document 02/20/25 09:00 DCW (Rec: 02/20/25 14:18 DCW [id number]) OP-PT Subjective Patient Comments Patient Comments I can't quite figure this out. Patient Questionnaires Dizziness Handicap Inventory DHI Score 32% PT-OP-O Vestibular Start: 02/20/25 13:59 Freq: Status: Active Protocol: Document 02/20/25 09:00 DCW (Rec: 02/20/25 14:18 DCW [id number]) Vestibular Assessment Auditory Tests Nickerson Test Within normal limits Rinne Test Negative Air Conduction Equal Results Visual Testing Smooth Pursuits WNL Horizontal Smooth Pursuits WNL Vertical Saccades Horizontal WNL Heave Test Positive Bilateral Thrust Head Positive Bilateral Positional Testing Kirkwood-Hallpike Negative Left,Negative Right Rolling Test Negative Left,Negative Right Vestibular Function Tests CTSIB Position 1 30 seconds - Mild Sway CTSIB Position 2 Fall Reaction CTSIB Position 3 30 seconds - Moderate Sway CTSIB Position 4 30 seconds - Moderate Sway CTSIB Position 5 Fall Reaction CTSIB Position 6 Fall Reaction Comments Vestibular Comments Orthostatic Blood Pressures: Supine: 129/76 Sittin/85 Standin/77 PT-OP-T Assessment and Plan Start: 02/20/25 13:59 Freq: Status: Active Protocol: Document 02/20/25 09:00 DCW (Rec: 02/20/25 14:18 DCW [id number]) Physical Therapy Assessment Rehab Potential Rehabilitation Good Potential Evaluation Complexity Number of Personal 3 or More Factors/ Comorbidities Number of Body 4 or More Systems Impaired Clinical Unstable Presentation at Evaluation Impairments Impairments Balance,Functional Activities,Functional Mobility, Vestibular Goals Two Impairment Pt demonstrate falls reaction in CTSIB positions II, V, and Fpc Goal (LTG) Pt to demonstrate ability to maintain upright posture with no falls reaction in CTSIB positions II and in order to demonstrate improvement in functional balance. LTG Duration 04/23/25 One Impairment Pt has been experiencing position-dependent vertigo in bed Motion Picture Photographer Goal (LTG) Pt to report no positional vertigo for two straight weeks LTG Duration 04/23/25 Assessment Summary Assessment Pt presents with a largely negative vestibular evaluation today. Pt's subjective history is suggestive of likely BPPV following hitting his head during his fall, however appears to no longer be displaying symptoms of active BPPV. Pt may have self-corrected with home Livier maneuver. His long-standing symptoms of lightheadedness after standing is suggestive of orthostatic hypotension, however pt has taken his own BPs multiple times over the years, and testing today also not indicative of drop in BP. PT did have difficulty with CSTIB positions II, V, and , indicating potential balance dysfunction and over reliance on visual input for stabilization. Will likely benefit from skilled therapeutic intervention with focus on static and dynamic balance in order to improve stability and decrease falls risk, with occasional follow-up testing for positional symptoms or orthostatic hypotension as indicated in the future. Physical Therapy Plan Frequency and Duration Frequency of 2x/Week Treatment Plan of Care Start 02/20/25 Date Plan of Care End 04/23/25 Date Therapeutic Interventions Therapeutic Balance Training,Canalithic Repositioning,Gait Training Interventions ,Home Exercise Program,Manual Therapy,Neuromuscular Re- education,Patient/Caregiver Education,Self-Care/Home Management,Soft Tissue Mobilization,Therapeutic Activities,Therapeutic Exercises,Vestibular Rehabilitation Next Visit Focus/Plan Next Note Type Treatment Note Next Visit Plan Static/dynamic balance challenges
--- NOTE | 2025-02-20 14:19 | PT.OPPOC ---
Physical, Occupational & Speech Therapy At [facility] Current Diagnoses Benign paroxysmal vertigo, bilateral (02/20/25) History of falling (02/20/25) Visit Care Team Role Provider Type Amber Cruz DO Family Provider Physician Primary Care Provider Specialty: Family Practice Address: [address] [place] [address], [address], [place], [address] Email: [email or web address] Hue Gomes PA-C Attending Provider Advanced [employer] President Referring Provider Specialty: Medical Wound Care Address: [address] [place] [address], [address] Email: [email or web address] Plan Of Care PT-OP-B Current Condition Start: 02/20/25 13:59 Freq: Status: Active Protocol: Document 02/20/25 09:00 DCW (Rec: 02/20/25 14:18 DCW [id number]) Current Condition History of Current Condition Onset Date 6 weeks s/p fall Current Complaints Lightheadedness, dizziness with positional changes History of Current Pt is a 79 year old male presenting with a long- Condition standing history of occasional lightheadedness when first standing up. HE notes he has a habit of standing up and then just waiting for ~1 minute in order to make sure he is not going to get symptomatic. Admits it sounds like orthostasis, but has tested himself multiple times and never has noticed a decrease in BP. Approximately six weeks ago, he had another episode of this, and actually ended up falling and hitting his head, denies LOC. Reports that ~one week afterward, he began to experience when he would consider more of a sensation of vertigo, usually with positional changes. Reports he had a follow-up with his PCP, reports she thinks she saw some nystagmus, had him performing self -Livier maneuvers and pt has been taking Meclizine, both of which seem to have been helping. Denies HTN of high cholesterol, denies any head injury prior to recent fall. PT-OP-T Assessment and Plan Start: 02/20/25 13:59 Freq: Status: Active Protocol: Document 02/20/25 09:00 DCW (Rec: 02/20/25 14:18 DCW [id number]) Physical Therapy Assessment Rehab Potential Rehabilitation Good Potential Evaluation Complexity Number of Personal 3 or More Factors/ Comorbidities Number of Body 4 or More Systems Impaired Clinical Unstable Presentation at Evaluation Impairments Impairments Balance,Functional Activities,Functional Mobility, Vestibular Goals Two Impairment Pt demonstrate falls reaction in CTSIB positions II, V, and Mcfp Goal (LTG) Pt to demonstrate ability to maintain upright posture with no falls reaction in CTSIB positions II and in order to demonstrate improvement in functional balance. LTG Duration 04/23/25 One Impairment Pt has been experiencing position-dependent vertigo in bed Paralegal Specialist Goal (LTG) Pt to report no positional vertigo for two straight weeks LTG Duration 04/23/25 Assessment Summary Assessment Pt presents with a largely negative vestibular evaluation today. Pt's subjective history is suggestive of likely BPPV following hitting his head during his fall, however appears to no longer be displaying symptoms of active BPPV. Pt may have self-corrected with home Livier maneuver. His long-standing symptoms of lightheadedness after standing is suggestive of orthostatic hypotension, however pt has taken his own BPs multiple times over the years, and testing today also not indicative of drop in BP. PT did have difficulty with CSTIB positions II, V, and , indicating potential balance dysfunction and over reliance on visual input for stabilization. Will likely benefit from skilled therapeutic intervention with focus on static and dynamic balance in order to improve stability and decrease falls risk, with occasional follow-up testing for positional symptoms or orthostatic hypotension as indicated in the future. Physical Therapy Plan Frequency and Duration Frequency of 2x/Week Treatment Plan of Care Start 02/20/25 Date Plan of Care End 04/23/25 Date Therapeutic Interventions Therapeutic Balance Training,Canalithic Repositioning,Gait Training Interventions ,Home Exercise Program,Manual Therapy,Neuromuscular Re- education,Patient/Caregiver Education,Self-Care/Home Management,Soft Tissue Mobilization,Therapeutic Activities,Therapeutic Exercises,Vestibular Rehabilitation Next Visit Focus/Plan Next Note Type Treatment Note Next Visit Plan Static/dynamic balance challenges Plan of Care Dates Plan of Care Start Date 02/20/25 Plan of Care End Date 04/23/25 Electronically Signed by: Feng Marie, PT 02/20/25 2589 If you are in agreement with this Plan of Care, please return a signed and dated copy. I have reviewed this Plan of Care and certify that the skilled therapy services above are required to meet the patient?s needs. Physician Signature Date Printed Name and Credentials Clinical Instructor Signature Printed Name and Credentials
--- NOTE | 2025-02-25 12:15 | PT.OTN ---
Current Diagnoses Benign paroxysmal vertigo, bilateral (02/25/25) History of falling (02/25/25) Physical Therapy Treatment Note PT-OP-A Visit Information Start: 02/20/25 13:59 Freq: Status: Active Protocol: Document 02/25/25 11:30 DCW (Rec: 02/25/25 12:15 DCW [id number]) Out-Patient Physical Therapy Visit Information Visit Information Visit Type Treatment Note Visit Start Time 11:30 Visit Stop Time 12:15 Visit Number 2 Number of COMPENSATION AND BENEFITS ADVISOR Visits 0 Evaluation Information Evaluation Date 02/20/25 PT-OP-B Current Condition Start: 02/20/25 13:59 Freq: Status: Active Protocol: Document 02/20/25 09:00 DCW (Rec: 02/20/25 14:18 DCW [id number]) Current Condition History of Current Condition Onset Date 6 weeks s/p fall Current Complaints Lightheadedness, dizziness with positional changes History of Current Pt is a 79 year old male presenting with a long- Condition standing history of occasional lightheadedness when first standing up. HE notes he has a habit of standing up and then just waiting for ~1 minute in order to make sure he is not going to get symptomatic. Admits it sounds like orthostasis, but has tested himself multiple times and never has noticed a decrease in BP. Approximately six weeks ago, he had another episode of this, and actually ended up falling and hitting his head, denies LOC. Reports that ~one week afterward, he began to experience when he would consider more of a sensation of vertigo, usually with positional changes. Reports he had a follow-up with his PCP, reports she thinks she saw some nystagmus, had him performing self -Livier maneuvers and pt has been taking Meclizine, both of which seem to have been helping. Denies HTN of high cholesterol, denies any head injury prior to recent fall. PT-OP-C Subjective Start: 02/20/25 13:59 Freq: Status: Active Protocol: Document 02/25/25 11:30 DCW (Rec: 02/25/25 12:15 DCW [id number]) OP-PT Subjective Patient Comments Patient Comments Pt notes he has been feeling quite a bit better PT-OP-O Vestibular Start: 02/20/25 13:59 Freq: Status: Active Protocol: Document 02/20/25 09:00 DCW (Rec: 02/20/25 14:18 DCW [id number]) Vestibular Assessment Auditory Tests Ncikerson Test Within normal limits Rinne Test Negative Air Conduction Equal Results Visual Testing Smooth Pursuits WNL Horizontal Smooth Pursuits WNL Vertical Saccades Horizontal WNL Heave Test Positive Bilateral Thrust Head Positive Bilateral Positional Testing Seaforth-Hallpike Negative Left,Negative Right Rolling Test Negative Left,Negative Right Vestibular Function Tests CTSIB Position 1 30 seconds - Mild Sway CTSIB Position 2 Fall Reaction CTSIB Position 3 30 seconds - Moderate Sway CTSIB Position 4 30 seconds - Moderate Sway CTSIB Position 5 Fall Reaction CTSIB Position 6 Fall Reaction Comments Vestibular Comments Orthostatic Blood Pressures: Supine: 129/76 Sittin/85 Standin/77 PT-OP-Q Treatments Start: 02/20/25 13:59 Freq: Status: Active Protocol: Document 02/25/25 11:30 DCW (Rec: 02/25/25 12:15 DCW [id number]) Gym Equipment Shuttle Balance Red Details WBOS, Staggered Therapeutic Exercises Other Exercises Resisted Ambulation Other Exercise Name Resisted Ambulation Resistance Green loop Manual Therapy Treatment Manual Techniques Positional Testing Type B Seaforth-Hallpike Neuro Re-Education Treatment Balance Activities Foam Details DLS, toe taps, EC SLS Details SLS Equipment // bars Tandem Details Tandem Equipment // bars Comments head turns PT-OP-T Assessment and Plan Start: 02/20/25 13:59 Freq: Status: Active Protocol: Document 02/25/25 11:30 DCW (Rec: 02/25/25 12:15 DCW [id number]) Physical Therapy Assessment Impairments Impairments Balance,Functional Activities,Functional Mobility, Vestibular Goals Two Impairment Pt demonstrate falls reaction in CTSIB positions II, V, and Coat Cutter Goal (LTG) Pt to demonstrate ability to maintain upright posture with no falls reaction in CTSIB positions II and in order to demonstrate improvement in functional balance. LTG Duration 04/23/25 One Impairment Pt has been experiencing position-dependent vertigo in bed Senior Living Goal (LTG) Pt to report no positional vertigo for two straight weeks LTG Duration 04/23/25 Assessment Summary Assessment Positional testing negative again today. Did work on balance challenges, pt felt they are a good thing to continue, agreeable to work on at home. Notable difficulty with eyes closed or with head turns. Physical Therapy Plan Frequency and Duration Frequency of 2x/Week Treatment Plan of Care Start 02/20/25 Date Plan of Care End 04/23/25 Date Therapeutic Interventions Therapeutic Balance Training,Canalithic Repositioning,Gait Training Interventions ,Home Exercise Program,Manual Therapy,Neuromuscular Re- education,Patient/Caregiver Education,Self-Care/Home Management,Soft Tissue Mobilization,Therapeutic Activities,Therapeutic Exercises,Vestibular Rehabilitation Next Visit Focus/Plan Next Note Type Treatment Note Next Visit Plan Static/dynamic balance challenges
--- NOTE | 2025-02-27 15:57 | PT.OTN ---
Addendum entered and electronically signed by Feng Marie, PT 02/27/25 16:06: PT direct supervision and direction to student PT Jr Onofre throughout session Original Note: Current Diagnoses Benign paroxysmal vertigo, bilateral (02/27/25) History of falling (02/27/25) Physical Therapy Treatment Note PT-OP-A Visit Information Start: 02/20/25 13:59 Freq: Status: Active Protocol: Document 02/27/25 12:16 LFG (Rec: 02/27/25 13:00 LFG [id number]) Out-Patient Physical Therapy Visit Information Visit Information Visit Type Treatment Note Visit Start Time 12:16 Visit Stop Time 12:54 Visit Number 3 Number of GROUND OPERATIONS SUPERVISOR Visits 0 Evaluation Information Evaluation Date 02/20/25 PT-OP-B Current Condition Start: 02/20/25 13:59 Freq: Status: Active Protocol: Document 02/20/25 09:00 DCW (Rec: 02/20/25 14:18 DCW [id number]) Current Condition History of Current Condition Onset Date 6 weeks s/p fall Current Complaints Lightheadedness, dizziness with positional changes History of Current Pt is a 79 year old male presenting with a long- Condition standing history of occasional lightheadedness when first standing up. HE notes he has a habit of standing up and then just waiting for ~1 minute in order to make sure he is not going to get symptomatic. Admits it sounds like orthostasis, but has tested himself multiple times and never has noticed a decrease in BP. Approximately six weeks ago, he had another episode of this, and actually ended up falling and hitting his head, denies LOC. Reports that ~one week afterward, he began to experience when he would consider more of a sensation of vertigo, usually with positional changes. Reports he had a follow-up with his PCP, reports she thinks she saw some nystagmus, had him performing self -Livier maneuvers and pt has been taking Meclizine, both of which seem to have been helping. Denies HTN of high cholesterol, denies any head injury prior to recent fall. PT-OP-C Subjective Start: 02/20/25 13:59 Freq: Status: Active Protocol: Document 02/27/25 12:16 LFG (Rec: 02/27/25 13:00 LFG [id number]) OP-PT Subjective Patient Comments Patient Comments Still improving, no bouts of dizziness, just needs to work on his balance. PT-OP-O Vestibular Start: 02/20/25 13:59 Freq: Status: Active Protocol: Document 02/20/25 09:00 DCW (Rec: 02/20/25 14:18 DCW [id number]) Vestibular Assessment Auditory Tests Nickerson Test Within normal limits Rinne Test Negative Air Conduction Equal Results Visual Testing Smooth Pursuits WNL Horizontal Smooth Pursuits WNL Vertical Saccades Horizontal WNL Heave Test Positive Bilateral Thrust Head Positive Bilateral Positional Testing [place]-Hallpike Negative Left,Negative Right Rolling Test Negative Left,Negative Right Vestibular Function Tests CTSIB Position 1 30 seconds - Mild Sway CTSIB Position 2 Fall Reaction CTSIB Position 3 30 seconds - Moderate Sway CTSIB Position 4 30 seconds - Moderate Sway CTSIB Position 5 Fall Reaction CTSIB Position 6 Fall Reaction Comments Vestibular Comments Orthostatic Blood Pressures: Supine: 129/76 Sittin/85 Standin/77 PT-OP-Q Treatments Start: 02/20/25 13:59 Freq: Status: Active Protocol: Document 02/27/25 12:16 LFG (Rec: 02/27/25 13:00 LFG [id number]) Gym Equipment Shuttle Recovery Unilateral Resistance 50# Shuttle Recovery Stable Platform Reps/Time x15 Bilateral Resistance 67# Shuttle Recovery Stable Platform Reps/Time x15 Shuttle Balance Red Details WBOS, Staggered, lateral Therapeutic Exercises Standing Exercises Hip abd Standing Exercise Hip abductions Name Side bilateral Resistance L2 Equipment Used // bars Reps/Minutes x12 Comments cues to limit pelvis/torso rotation Other Exercises Resisted Ambulation Other Exercise Name F/L Resistance L2 Comments cues for feet forward, control banded feet Neuro Re-Education Treatment Balance Activities Hurdles Details Hurdles F/B Surface AirEx Equipment // bars Reps/Duration x2 w/ foam, x2 w/o Comments cues to slow down, reset and keep feet fwd, oyster picker feet cone taps Details cone taps Surface AirEx Equipment // bars Comments SBA Tandem Details Tandem holds + soft nudging Equipment // bars Comments SBA PT-OP-T Assessment and Plan Start: 02/20/25 13:59 Freq: Status: Active Protocol: Document 02/27/25 12:16 LFG (Rec: 02/27/25 13:00 LFG [id number]) Physical Therapy Assessment Rehab Potential Rehabilitation Good Potential Evaluation Complexity Number of Personal 3 or More Factors/ Comorbidities Number of Body 4 or More Systems Impaired Clinical Unstable Presentation at Evaluation Impairments Impairments Balance,Functional Activities,Functional Mobility, Vestibular Goals Two Impairment Pt demonstrate falls reaction in CTSIB positions II, V, and Prison Goal (LTG) Pt to demonstrate ability to maintain upright posture with no falls reaction in CTSIB positions II and in order to demonstrate improvement in functional balance. LTG Duration 04/23/25 One Impairment Pt has been experiencing position-dependent vertigo in bed Prison Goal (LTG) Pt to report no positional vertigo for two straight weeks LTG Duration 04/23/25 Assessment Summary Assessment Patient denied having any recent vestibular problems and but still thinks his balance needs some improvement . Introduced more balance training today in parallel bars which the pt tolerated well. Requires cueing to slow down, correct feet, and maintain proper torso/ pelvic posture. Continue to build and progress static/ dynamic balance training. Physical Therapy Plan Frequency and Duration Frequency of 2x/Week Treatment Plan of Care Start 02/20/25 Date Plan of Care End 04/23/25 Date Therapeutic Interventions Therapeutic Balance Training,Canalithic Repositioning,Gait Training Interventions ,Home Exercise Program,Manual Therapy,Neuromuscular Re- education,Patient/Caregiver Education,Self-Care/Home Management,Soft Tissue Mobilization,Therapeutic Activities,Therapeutic Exercises,Vestibular Rehabilitation Next Visit Focus/Plan Next Note Type Treatment Note Next Visit Plan Static/dynamic balance challenges
--- NOTE | 2025-03-03 11:28 | PT.OTN ---
Current Diagnoses Benign paroxysmal vertigo, bilateral (03/03/25) History of falling (03/03/25) Physical Therapy Treatment Note PT-OP-A Visit Information Start: 02/20/25 13:59 Freq: Status: Active Protocol: Document 03/03/25 10:45 DCW (Rec: 03/03/25 11:28 DCW [id number]) Out-Patient Physical Therapy Visit Information Visit Information Visit Type Discharge Summary Visit Start Time 10:45 Visit Stop Time 11:30 Visit Number 4 Number of ROD FINISHER Visits 0 Evaluation Information Evaluation Date 02/20/25 PT-OP-B Current Condition Start: 02/20/25 13:59 Freq: Status: Active Protocol: Document 02/20/25 09:00 DCW (Rec: 02/20/25 14:18 DCW [id number]) Current Condition History of Current Condition Onset Date 6 weeks s/p fall Current Complaints Lightheadedness, dizziness with positional changes History of Current Pt is a 79 year old male presenting with a long- Condition standing history of occasional lightheadedness when first standing up. HE notes he has a habit of standing up and then just waiting for ~1 minute in order to make sure he is not going to get symptomatic. Admits it sounds like orthostasis, but has tested himself multiple times and never has noticed a decrease in BP. Approximately six weeks ago, he had another episode of this, and actually ended up falling and hitting his head, denies LOC. Reports that ~one week afterward, he began to experience when he would consider more of a sensation of vertigo, usually with positional changes. Reports he had a follow-up with his PCP, reports she thinks she saw some nystagmus, had him performing self -Livier maneuvers and pt has been taking Meclizine, both of which seem to have been helping. Denies HTN of high cholesterol, denies any head injury prior to recent fall. PT-OP-C Subjective Start: 02/20/25 13:59 Freq: Status: Active Protocol: Document 03/03/25 10:45 DCW (Rec: 03/03/25 11:28 DCW [id number]) OP-PT Subjective Patient Comments Patient Comments Pt notes he felt a little light-headed on Sunday for a bit, but unsure what caused it, was reading a journal , got up, and just felt off for ~two hours. PT-OP-O Vestibular Start: 02/20/25 13:59 Freq: Status: Active Protocol: Document 02/20/25 09:00 DCW (Rec: 02/20/25 14:18 DCW [id number]) Vestibular Assessment Auditory Tests Nickerson Test Within normal limits Rinne Test Negative Air Conduction Equal Results Visual Testing Smooth Pursuits WNL Horizontal Smooth Pursuits WNL Vertical Saccades Horizontal WNL Heave Test Positive Bilateral Thrust Head Positive Bilateral Positional Testing Deja-Hallpike Negative Left,Negative Right Rolling Test Negative Left,Negative Right Vestibular Function Tests CTSIB Position 1 30 seconds - Mild Sway CTSIB Position 2 Fall Reaction CTSIB Position 3 30 seconds - Moderate Sway CTSIB Position 4 30 seconds - Moderate Sway CTSIB Position 5 Fall Reaction CTSIB Position 6 Fall Reaction Comments Vestibular Comments Orthostatic Blood Pressures: Supine: 129/76 Sittin/85 Standin/77 PT-OP-Q Treatments Start: 02/20/25 13:59 Freq: Status: Active Protocol: Document 03/03/25 10:45 DCW (Rec: 03/03/25 11:28 DCW [id number]) Gym Equipment Shuttle Recovery Unilateral Resistance 50# Shuttle Recovery Stable Platform Bilateral Resistance 100# Shuttle Recovery Stable Platform Shuttle Balance Red Details WBOS, Staggered, Lateral weight shift Neuro Re-Education Treatment Balance Activities Dynamic Gait Details Hallway ambulation Comments Horizontal/vertical head turns /c metronome (90 bpm) cone taps Details cone taps Surface AirEx Equipment // bars Comments SBA SLS Details SLS Equipment // bars Tandem Details Tandem stance Equipment // bars Comments head turns PT-OP-T Assessment and Plan Start: 02/20/25 13:59 Freq: Status: Active Protocol: Document 03/03/25 10:45 DCW (Rec: 03/03/25 11:28 DCW [id number]) Physical Therapy Assessment Impairments Impairments Balance,Functional Activities,Functional Mobility, Vestibular Goals Two Impairment Pt demonstrate falls reaction in CTSIB positions II, V, and Office Machine Technician Goal (LTG) Pt to demonstrate ability to maintain upright posture with no falls reaction in CTSIB positions II and in order to demonstrate improvement in functional balance. LTG Duration 04/23/25 One Impairment Pt has been experiencing position-dependent vertigo in bed Mcc Goal (LTG) Pt to report no positional vertigo for two straight weeks LTG Duration Met Assessment Summary Assessment Pt feeling better overall, no recent instances of positional vertigo. Is still experiencing occasional episodes of light-headedness, but feels like he is back to baseline. Feels comfortable with his current HEP. Pt agreeable to discharge from skilled therapy at this time. Physical Therapy Plan Frequency and Duration Frequency of 2x/Week Treatment Plan of Care Start 02/20/25 Date Plan of Care End 04/23/25 Date Therapeutic Interventions Therapeutic Balance Training,Canalithic Repositioning,Gait Training Interventions ,Home Exercise Program,Manual Therapy,Neuromuscular Re- education,Patient/Caregiver Education,Self-Care/Home Management,Soft Tissue Mobilization,Therapeutic Activities,Therapeutic Exercises,Vestibular Rehabilitation Discharge Physical Therapy Discharge Comments D/c to independent HEP Next Visit Focus/Plan Next Note Type Discharge Summary
== END 2025-03-04 13:08 | disposition home or self-care (01) ==
LOC: PHYS 10:45
PROVIDERS: Family Provider Family Medicine; PCP Family Medicine; Referring Provider Physician Assistant; Visit Provider Physician Assistant
DX: Z91.81 History of falling (principal); H81.13 Benign paroxysmal vertigo, bilateral
CPT/HCPCS: 97110; 97112; 97163

== ENCOUNTER → 2025-06-03 09:39 | Outpatient (CLI) | payer MEDICARE, OTHER, SELFPAY ==
[2025-06-03 10:45] LABS: Cholesterol 156 mg/dL (140-199); HDL Cholesterol 67 mg/dL (40-60); Triglycerides 94 mg/dL (35-150)
== END ==
PROVIDERS: Family Provider Family Medicine; PCP Family Medicine; Referring Provider Family Medicine; Visit Provider Family Medicine
DX: Z00.00 Encounter for general adult medical examination without abnormal findings (principal); E78.2 Mixed hyperlipidemia; I48.0 Paroxysmal atrial fibrillation; M35.3 Polymyalgia rheumatica
CPT/HCPCS: 36415; 80061

== ENCOUNTER 2025-06-23 09:26 | Emergency (ER) | payer MEDICARE, OTHER, SELFPAY ==
[2025-06-23 09:35] VITALS: BP 132/85; PULSE 73; RESP 15; TEMP 36.4; O2SAT 97; BMI 28.5
--- NOTE | 2025-06-23 09:38 | DI.RAD.S_ITS ---
PROCEDURE: XR CHEST 1V INDICATIONS: Chest Pain TECHNIQUE: One view of the chest was acquired. COMPARISON: None. FINDINGS: Surgical changes and devices: None. Lungs and pleura: Lungs are clear. No pleural effusions or pneumothorax. Mediastinum: Mediastinal contours appear normal. Heart size is normal. Bones and chest wall: No suspicious bony lesions. Overlying soft tissues appear unremarkable. IMPRESSION: No acute cardiopulmonary pathology. Dictated by: Thomas Sanchez M.D. on 06/23/2025 at 10:00 Approved by: Thomas Sanchez M.D. on 06/23/2025 at 10:01
[2025-06-23 10:03] LABS: Add Manual Diff / Slide Review NO; Hematocrit 45.0 % (41-53); Hemoglobin 15.1 g/dL (13.5-17.5); Lymphocytes Absolute Auto 1000 /uL (1100-4500); Mean Corpuscular HGB Conc 33.5 % (30-36); Mean Corpuscular Hemoglobin 32.0 PG (26-34); Mean Corpuscular Volume 95.7 fL (80-100); Platelet Count 203 X10^3/uL (150-400)
[2025-06-23 10:09] LABS: INR 0.9 (0.9-1.3); Prothrombin Time 10.3 SECONDS (9.4-12.5)
[2025-06-23 10:12] LABS: PTT Partial Thromboplastin Tim 28 SECONDS (25.1-36.5)
[2025-06-23 10:14] LABS: Alanine Aminotransferase 24 IU/L (<50); Albumin 4.4 g/dL (3.5-5.0); Albumin Globulin Ratio 1.6 (1.0-2.8); Alkaline Phosphatase 58 U/L (38-126); Blood Urea Nitrogen 22 mg/dL (9-20); Calcium 9.4 mg/dL (8.4-10.2); Carbon Dioxide 27 mmol/L (22-32); Chloride 105 mmol/L (98-107); Creatine Kinase 39 U/L (55-170); Estimated Glomerular Filt Rate 58 mL/min (>60); Globulin 2.8 g/dL (1.7-4.1); Glucose 116 mg/dL (70-99); HEMOLYSIS < 15 (0-50); Lipase 113 U/L (23-300); Magnesium 1.9 mg/dL (1.6-2.3); Potassium 4.2 mmol/L (3.4-5.1); Sodium 142 mmol/L (137-145); Total Protein 7.2 g/dL (6.3-8.2)
[2025-06-23 10:16] VITALS: PULSE 101; RESP 21; O2SAT 98
[2025-06-23 10:17] VITALS: BP 162/102; PULSE 97; RESP 21; O2SAT 96
--- NOTE | 2025-06-23 10:23 | ED.ARRPALP ---
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 He has been having some lightheadedness for about a week. It is mainly when he is upright and walking. It is not associated with chest pain or shortness of breath. The patient has a known history of atrial fibrillation, can not tell me when he went into atrial fibrillation and this episode. He is not anticoagulated he has been taking metoprolol and propafenone. There is a cardiology consult from June of 2022 in the record which was reviewed. History of paroxysmal atrial fibrillation, informed choice not to take anticoagulation. At that time was having a low burden of atrial fibrillation. Related Data Home Medications ?Medication ?Instructions ?Recorded ?Confirmed multivitamin 1 tab PO DAILY 01/22/25 06/03/25 mecobalamin (vitamin B12) 1 tab PO DAILY 06/03/25 06/03/25 Previous Rx's ?Medication ?Instructions ?Recorded metoprolol succinate 25 mg 25 mg PO DAILY #90 tabs 06/03/25 tablet,extended release 24 hr propafenone 150 mg tablet 150 mg PO Q8H #180 tabs 06/03/25 rosuvastatin 5 mg tablet (Crestor) 5 mg PO DAILY #90 tabs 06/03/25 apixaban 5 mg tablet (Eliquis) 5 mg PO BID #60 tabs 06/23/25 testosterone 1 % (50 mg/5 gram) 2 packet transdermal DAILY #300 06/23/25 transdermal gel packet grams Allergies Allergy/AdvReac Type Severity Reaction Status Date / Time No Known Drug Allergies Allergy Verified 06/23/25 09:35 Patient History Medical History Chronic pain of left knee Presbycusis, right ear Fall from ladder Colon polyps GI bleed Osteoarthritis Polymyalgia rheumatica Carpal tunnel syndrome Chicken pox Kidney stones Surgical History Anesthesia Rectal abscess History of toe surgery History of total right knee replacement (~2011) Family History Mother Hypertension Breast cancer Uterine cancer Social History marital status: household members: spouse occupational status: previously employed Smoking Status: Unknown if ever smoked alcohol intake: current substance use type: does not use Smoking Status: Unknown if ever smoked alcohol intake frequency: 0-2 drinks per day Exam Narrative Exam Narrative: Pleasant alert and oriented no distress Neck is supple no jugular venous distention Lungs are clear Cardiac irregularly irregular no murmur rub or gallop, borderline tachycardic Initial Vital Signs Initial Vital Signs: Vital Signs Temperature 97.5 F L 06/23/25 09:35 Pulse Rate 73 06/23/25 09:35 Respiratory Rate 15 06/23/25 09:35 Blood Pressure 132/85 06/23/25 09:35 Pulse Oximetry 97 06/23/25 09:35 Oxygen Delivery Method Room Air 06/23/25 09:35 Course Orders Ordered: ED Orders 06/23/25 09:38 XR chest 1V Stat 06/23/25 09:50 Complete Blood Count AUTO DIFF Stat Comprehensive Metabolic Panel Stat Lipase Stat Magnesium Stat NT-proBNP (BNP-Adult 18+) Stat PTT Partial Thromboplastin Franc Stat Prothrombin Time INR Stat Troponin & CK Cardiac Panel Stat Discontinued Medications Aspirin (Aspirin 81 Mg Chew Tab) 324 mg PO NOW ONE Stop: 06/23/25 09:39 Consultations Consultation #1: Discussed with Cardiology, Dr. Sosa, recommends continuing propafenone and metoprolol, recommend starting full oral anticoagulation and outpatient follow up Vital Signs Vital signs: Vital Signs - 8 hr 06/23/25 09:35 06/23/25 10:16 06/23/25 10:17 Temperature 97.5 F L Pulse Rate 73 101 H 97 H Respiratory Rate 15 21 21 Blood Pressure 132/85 Pulse Oximetry 97 98 96 Oxygen Delivery Method Room Air 06/23/25 10:17 06/23/25 10:30 06/23/25 10:31 Temperature Pulse Rate 99 H Respiratory Rate 19 Blood Pressure 162/102 H 102/53 L Pulse Oximetry 92 Oxygen Delivery Method 06/23/25 10:31 06/23/25 10:45 Temperature Pulse Rate 113 H Respiratory Rate 17 Blood Pressure 130/73 Pulse Oximetry 94 Oxygen Delivery Method MDM - Arrhythmia/Palpitations Lab Data Lab results narrative: Labs were remarkable for mildly elevated creatinine, this appears to be his baseline. Troponins is normal. 06/23/25 09:50 06/23/25 09:50 Labs: Lab Results 06/23/25 Range/Units 09:50 WBC 6.2 (4.5-11.0) X10^3/uL RBC 4.71 (4.5-5.9) X10^6/uL Hgb 15.1 (13.5-17.5) g/dL Hct 45.0 (41-53) % MCV 95.7 (80-100) fL MCH 32.0 (26-34) PG MCHC 33.5 (30-36) % RDW 14.9 H (11.6-14.8) % Plt Count 203 (150-400) X10^3/uL Neut % (Auto) 68.9 (50-75) % Lymph % (Auto) 16.0 L (25-40) % [place] % (Auto) 8.7 (3-14) % Eos % (Auto) 5.5 H (2-4) % Baso % (Auto) 0.9 (0-2) % Neut # (Auto) 4300 (7664-1837) /uL Lymph # (Auto) 1000 L (0515-3354) /uL [place] # (Auto) 500 (0-900) /uL Eos # (Auto) 300 (0-450) /uL Baso # (Auto) 100 (0-100) /uL PT 10.3 (9.4-12.5) SECONDS INR 0.9 (0.9-1.3) APTT 28 (25.1-36.5) SECONDS Sodium 142 (137-145) mmol/L Potassium 4.2 (3.4-5.1) mmol/L Chloride 105 (98-107) mmol/L Carbon Dioxide 27 (22-32) mmol/L BUN 22 H (9-20) mg/dL Creatinine 1.26 H (0.66-1.25) mg/dL Estimated GFR 58 L (>60) mL/min BUN/Creatinine Ratio 17.5 (6-22) Glucose 116 H (70-99) mg/dL Calcium 9.4 (8.4-10.2) mg/dL Magnesium 1.9 (1.6-2.3) mg/dL Total Bilirubin 0.7 (0.2-1.3) mg/dL AST 29 (17-59) IU/L ALT 24 (<50) IU/L Alkaline Phosphatase 58 (38-126) U/L Total Creatine Kinase 39 L (55-170) U/L Troponin I < 0.012 (0.01-0.034) ng/mL NT-Pro-B Natriuret Pep 377 (<450) pg/mL Total Protein 7.2 (6.3-8.2) g/dL Albumin 4.4 (3.5-5.0) g/dL Globulin 2.8 (1.7-4.1) g/dL Albumin/Globulin Ratio 1.6 (1.0-2.8) Lipase 113 (23-300) U/L Imaging Data Chest x-ray: My Impression: Independently reviewed chest x-ray, no acute finding ECG Data Attestation: I personally reviewed and interpreted this ECG as follows: (Atrial fibrillation with a ventricular rate of 107 there is a right bundle-branch block) MDM Narrative Medical decision making narrative: 71-year-old male with a history of atrial fibrillation presenting with an episode of atrial fibrillation. His rate is controlled. He is not anticoagulated, he is unsure of how long he has been in atrial fibrillation. He will be started on oral anticoagulation today I started him on Eliquis and stopped his aspirin. He will continue his other medications including metoprolol for rate control and follow up with Cardiology. Discharge Plan Departure Patient Disposition: Home Clinical Impression: Paroxysmal atrial fibrillation Activity Restrictions/Additional Instructions: Today, we see that you are in atrial fibrillation. I have started you on Eliquis to protect her from stroke. As we discussed, you should stop taking the aspirin and should not use ibuprofen or other nonsteroidal anti-inflammatory medications. If you hit your head have a severe headache or other evidence of bleeding return to the emergency department immediately. Continue your other previous home medications. Follow up with Cardiology soon. If you are having chest pain shortness of breath rapid heart rate fainting or other acute symptoms recheck in the emergency department Prescriptions: New Eliquis 5 mg tablet 5 mg PO BID Qty: 60 0RF Discontinued aspirin 81 mg tablet,delayed release (DR/EC) 81 mg PO DAILY No Action testosterone 1 % (50 mg/5 gram) gel in packet 2 packet transdermal DAILY Qty: 300 5RF multivitamin Tablet 1 tab PO DAILY mecobalamin (vitamin B12) 1 tab PO DAILY metoprolol succinate 25 mg tablet extended release 24 hr 25 mg PO DAILY Qty: 90 3RF propafenone 150 mg tablet 150 mg PO Q8H Qty: 180 3RF rosuvastatin [Crestor] 5 mg tablet 5 mg PO DAILY Qty: 90 3RF Referrals: Amber Cruz DO [Primary Care Provider, Family Practice] Stand Alone Forms: Patient Portal/API
--- NOTE | 2025-06-23 10:24 | PC.NURSE ---
Patiet has history of AFIb, not anticoagualted at this time. Has been having dizziness. Denies chest pain.
[2025-06-23 10:26] LABS: NT-proBNP (BNP-Adult 18+) 377 pg/mL (<450); Troponin I < 0.012 ng/mL (0.01-0.034)
[2025-06-23 10:30] VITALS: PULSE 99; RESP 19; O2SAT 92
[2025-06-23 10:31] VITALS: BP 102/53; PULSE 113; RESP 17; O2SAT 94
[2025-06-23 10:45] VITALS: BP 130/73
== END 2025-06-23 10:45 | disposition home or self-care (01) ==
PROVIDERS: Emergency Provider Emergency Medicine; Family Provider Family Medicine; PCP Family Medicine
DX: I48.0 Paroxysmal atrial fibrillation (principal); R42 Dizziness and giddiness
CPT/HCPCS: 36415; 71045; 80053; 82550; 83690; 83735; 83880; 84484; 85025; 85610; 85730; 93005; 99284

== ENCOUNTER → 2025-07-06 14:50 | Outpatient (CLI) | payer MEDICARE, OTHER, SELFPAY ==
--- NOTE | 2025-07-06 14:52 | DI.ECHO.S_ITS ---
[facility] +---------+ [facility] : : [address] : : [id number] : : Phone: [phone] Echocardiogram Report + + :Name: DEEPA LITTLE Study Date: 07/06/2025 Height: 74 in : :Hospital ReadingLocation: Weight: 223 lb : : Gender: Male BSA: 2.3 m2 : :: 1945 Age: 79 yrs BP: 135/79 mmHg: :Reason For Study: Atrial fibrillation - paroxysmal : :Ordering Physician: KULDEEP, : :KYLE Performed By: Mary Cotto : :Referring: KYLE LIGHT : + + Interpretation Summary Normal sinus rhythm. Normal LV walker and wall thickness; normal wall motion and LV systolic function. EF is 50-55%. Mild LA enlargement; otherwise normal chamber sizes. Aortic valve is a trileaflet structure with mildly thickened and calcified leaflets; aortic sclerosis without significant stenosis. Otherwise there are no significant valve abnormalities. Mildly dilated aortic root measuring 4 cm in diameter. No prior study available for comparison. Procedure: A two-dimensional transthoracic echocardiogram with color flow and Doppler was performed. The study quality was technically adequate. There is no prior echocardiogram noted for this patient. The heart rate ranged between 59-61 bpm during the study. Left Ventricle: The left ventricle is normal in size and wall thickness. The ejection fraction is estimated to be 50-55%. Diastolic function could not be accurately assessed due to unobtainable data. Right Ventricle: The right ventricle is normal size. Right ventricular systolic function is mildly reduced. Atria: The left atrium is mildly dilated. Right atrial size is normal. The interatrial septum grossly appears intact with no obvious evidence for an atrial septal defect. Mitral Valve: The mitral valve is grossly normal. There is mild mitral regurgitation. Aortic Valve: The aortic valve is trileaflet. There is minimally reduced leaflet mobility. There is no aortic valve stenosis. No aortic regurgitation is present. Tricuspid Valve: The tricuspid valve leaflets are thin and pliable. There is a trace or physiologic amount of tricuspid regurgitation. Pulmonic Valve: The pulmonic valve is not well visualized. Great Vessels: The aortic root is mildly dilated. The ascending aorta is normal in size. The aortic arch is normal in size. The inferior vena cava was not visualized. Pericardium/ Pleura There is no pericardial effusion. There is no pleural effusion. MMode/2D Measurements & Calculations LVIDd: 5.5 cm LVOT diam: 2.4 cm LVIDs: 2.9 cm Ao root diam: 4.0 cm FS: 46.8 % asc Aorta Diam: 3.6 cm EPSS: 0.99 cm Ao Arch Diam (Prox Trans): 3.3 cm IVSd: 0.86 cm LVPWd: 0.76 cm LV michelle. diameter/BSA (cm/m^2): 2.4 LV sys. diameter/BSA (cm/m^2): 1.3 LA A2 area: 25.9 cm2 RA long axis: 4.9 cm LA A4 area: 27.9 cm2 RA area: 19.1 cm2 LA length (vol): 6.3 cm RA vol: 62.9 ml LA vol: 97.6 ml RA : 27.6 ml/m2 LA vol index: 42.9 ml/m2 RVD1 (basal): 2.7 cm TAPSE: 2.0 cm Doppler Measurements & Calculations Ao V2 max: 147.1 cm/sec LVOT Max Ugo: 87.4 cm/sec Ao V2 mean: 103.0 cm/sec LV V1 max P.1 mmHg Ao max P.7 mmHg LV V1 VTI: 19.5 cm Ao mean P.7 mmHg PAVEL(I,D): 2.5 cm2 Ao V2 VTI: 34.1 cm PAVEL(V,D): 2.6 cm2 sev ratio: 0.57 PAVEL indexed to BSA (cm^2/m^2): 1.1 MV E max ugo: 73.9 cm/sec TR max ugo: 233.4 cm/sec MV A max ugo: 56.8 cm/sec TR max P.8 mmHg MV E/A: 1.3 PA V2 max: 90.6 cm/sec MV dec time: 0.18 sec PA V2 mean: 54.0 cm/sec PA mean P.4 mmHg PA pr(Accel): 31.5 mmHg SV(LVOT): 85.5 ml Electronically signed by: Adamaris Otoole M.D. on Reading Physician:07/07/2025 12:18 AM
--- NOTE | 2025-07-06 16:03 | EKG_ITS ---
[address] [address] Test Date: 2025-07-06 Pat Name: Yogi Perdue Department: DEFAULT Room: Gender: Male Plate Printer: : 1945 Requested By: Order Number: [id number] Reading MD: Gama Barajas Measurements Intervals Edward Rate: 58 P: 60 IN: 186 QRS: 83 QRSD: 188 T: 38 QT: 502 QTc: 492 Interpretive Statements Sinus bradycardia Right bundle branch block Electronically Signed On 07-07-2025 19:03:54 PST by Gama Barajas
== END ==
PROVIDERS: Family Provider Family Medicine; PCP Family Medicine; Referring Provider Family Medicine; Visit Provider Family Medicine
DX: I34.0 Nonrheumatic mitral (valve) insufficiency (principal); I77.810 Thoracic aortic ectasia; E78.00 Pure hypercholesterolemia, unspecified; G25.2 Other specified forms of tremor; R42 Dizziness and giddiness; I48.0 Paroxysmal atrial fibrillation
CPT/HCPCS: 93005; 93306

== ENCOUNTER → 2025-07-08 15:21 | Outpatient (CLI) | payer MEDICARE, OTHER, SELFPAY ==
--- NOTE | 2025-07-08 15:27 | DI.NM.S_ITS ---
PROCEDURE: NM DULCE MARIA PERF SPECT R&S PHARM Rest and pharmacological stress myocardial perfusion SPECT with gated imaging and ejection fraction RADIOPHARMACEUTICAL: 25 mCi Tc-99m tetrafosmin IV at rest and 25.2 mCi Tc-99m tetrafosmin IV at peak effect of pharmacological stress. [id number] was performed. INDICATIONS: PAF TECHNIQUE: Radiopharmaceutical was injected at peak stress test, and also at rest. SPECT images were obtained. SPECT myocardial perfusion images were displayed in short axis, horizontal long axis, and vertical long axis views. Gated images were reviewed using [employer] software. COMPARISON: None. CARDIAC STRESS: A pharmacologic stress test was performed under the supervision of an attending staff, using an infusion of lexiscan 0.4mg IV X1. Hemodynamic data: There is normal blood pressure and heart rate response to pharmacologic stress. Symptoms: The patient denied anginal chest pain. Aminophylline: none EKG: No diagnostic changes of ischemia; no ectopy. FINDINGS: Raw data: There is good myocardial uptake of radiotracer. No significant motion artifacts. Nrzg-[id number] ratio is 0.29 (normal is less than 0.38 for tetrafosmin tracer). Left ventricle function: Gated images demonstrate normal left ventricular wall thickening. No segmental wall motion abnormalities. No transient ischemic dilation; TID is 1 (normal less than 1.3). Left ventricle resting end diastolic volume is 118 mL. Left ventricle stress ejection fraction is 74%; normal range is above 45%. Myocardial perfusion: There is normal distribution of activity in the right and left ventricular myocardium. No fixed or reversible perfusion defects. IMPRESSION: Low risk, normal pharm nuclear stress test from inducible ischemia standpoint. 1) No perfusion evidence of ischemia or infarction. 2) Normal left ventricular size, wall motion, and systolic function (EF post stress 74%). 3) No diagnostic ST changes during exercise or recovery. 4) No angina during the study. 5) Moderate reduced exercise tolerance (4.6Mets, JEANNINE +32%). Since target heart rate wasn't reached, study was switched to lexiscan. 6) No prior nuclear stress test available for comparison. Dictated by: Serg Calderon MD on 07/17/2025 at 17:12 Approved by: Serg Calderon MD on 07/17/2025 at 17:15
== END ==
PROVIDERS: Family Provider Family Medicine; PCP Family Medicine; Referring Provider Internal Medicine; Visit Provider Internal Medicine
DX: I48.0 Paroxysmal atrial fibrillation (principal)
CPT/HCPCS: 78452; 93017; A9502; J2785